=== PATIENT | female | born 1945 | race Caucasian/White ===

== ENCOUNTER → 2017-09-02 | Emergency (ER) | payer MEDICARE, SELFPAY ==
[~2017-09-02] VITALS: Ht 165.1 cm; Wt 52.2 kg
[~2017-09-02] MED LIST: ATORVASTATIN CA40 MG PO; CRUTCH1 EACH; DULCOLAX STOOL100 MG PO; ESOMEPRAZOLE MA20 MG PO; FLUOXETINE HCL20 MG PO; GABAPENTIN300 MG PO; HYDROCODON-ACE1 EA11 PO; LORAZEPAM1 MG PO; LORAZEPAM2 MG PO; METOPROLOL SUCC25 MG PO; NAPROSYN375 MG PO; NORCO 5-325 TA1 EACH PO; PERCOCET 5-3251 EACH PO; POLYETHYLENE GL17 GM PO; PRILOSEC OTC20 MG PO; RANITIDINE HCL150 MG PO; TRANSDERM-SCOP1 EA TD; VICODIN 5-5001 EACH PO; ZYRTEC10 MG PO
--- OUTSIDE RECORDS SUMMARY | ~2017-09-02 | XMS | Clinical Summary ---
Demographics + + + | Address | [address] | | | [place] [address] | + + + | Home Phone | | + + + | Preferred Language | Unknown | + + + | Marital Status | Single | + + + | Latter Day Affiliation | Unknown | + + + | Race | White | + + + | Ethnic Group | Not or | + + + Author + + + | Author | [facility] | + + + | Organization | [facility] | + + + | Address | Unknown | + + + | Phone | Unavailable | + + + Support +------+ +---------+ + | Name | Relationship | Address | Phone | +------+ +---------+ + ECON | Unknown | | +------+ +---------+ + Care Team Providers + +------+ + | Care Road Maker Name | Role | Phone | + +------+ + PP | Unavailable | + +------+ + Source Comments SUSAN is fully live on both [facility] and [facility] Allergies + + + + + + | Active Allergy | Reactions | Severity | Noted | Comments | | | | | Date | | + + + + + + | Vpaazved-Meszvtsez-K | Pruritus, Rash | Medium | 05/06/20 | allergy to the | | idocaine | | | 06 | combonation of | | | | | | anitbiotic and pain | | | | | | killers. Only when | | | | | | they are combinded | | | | | | together! | + + + + + + | Acetaminophen | Pruritus, Rash | Medium | 05/06/20 | Allergy when pain | | | | | 06 | killer in combinded | | | | | | with anitbiotics! | + + + + + + Current Medications + + +-------+---------+------+------+-------+ | Prescription | Sig. | Disp. | Refills | Star | End | Statu | | | | | | t | Date | s | | | | | | Date | | | + + +-------+---------+------+------+-------+ | LIPITOR 10 MG TAB | take 1 tablet (10mg) | | | | | Activ | | | by oral route once | | | | | e | | | daily | | | | | | + + +-------+---------+------+------+-------+ | FAMOTIDINE 20 MG | take 1 tablet (20mg) | | | | | Activ | | TAB | by oral route 2 | | | | | e | | | times per day | | | | | | + + +-------+---------+------+------+-------+ | CLARINEX OR | 5mg daily | | | | | Activ | | | | | | | | e | + + +-------+---------+------+------+-------+ | ACTANOL OR | 35mg once a week | | | | | Activ | | | | | | | | e | + + +-------+---------+------+------+-------+ | PERCOCET 5 MG-325 | take 1 tablet by | | | | | Activ | | MG TAB | oral route every 6 | | | | | e | | | hours as needed | | | | | | + + +-------+---------+------+------+-------+ | ATIVAN 1 MG TAB | take 1 tablet (1mg) | | | | | Activ | | | by oral route 3 | | | | | e | | | times per day as | | | | | | | | needed | | | | | | + + +-------+---------+------+------+-------+ Active Problems + + + | Problem | Noted Date | + + + | Breast cancer (HCC) | 05/09/2006 | + + + Social History + + + +--------+------+ | Tobacco Use | Types | Packs/Day | Years | Date | | | | | Used | | + + + +--------+------+ | Current Every Day | Cigarettes, Cigars | 1.5 | 40 | | | Smoker | | | | | + + + +--------+------+ + + + | Sex Assigned at | Date Recorded | | | | + + + | Not on file | | + + + Last Filed Vital Signs + + + + | Vital Sign | Reading | Time Taken | + + + + | Blood Pressure | 98/68 | 05/06/2006 3:01 PM PDT | + + + + | Pulse | - | - | + + + + | Temperature | - | - | + + + + | Respiratory Rate | 16 | 05/06/2006 3:01 PM PDT | + + + + | Oxygen Saturation | - | - | + + + + | Inhaled Oxygen | - | - | | Concentration | | | + + + + | Weight | 51.7 kg (114 lb) | 05/06/2006 3:01 PM PDT | + + + + | Height | 165.1 cm (5' 5") | 05/06/2006 3:01 PM PDT | + + + + | Body Mass Index | 18.97 | 05/06/2006 3:01 PM PDT | + + + + Plan of Treatment + + + + + | Health Maintenance | Due Date | Last Done | Comments | + + + + + | INFLUENZA VACCINE | | | | | (FLU SHOT) | 7 | | | + + + + + Results Not on filefrom Last 3 Months
--- OUTSIDE RECORDS SUMMARY | ~2017-09-02 | XMS | Clinical Summary ---
Demographics + + + | Address | [address] | | | [place] [address] | + + + | Home Phone | | + + + | Preferred Language | Unknown | + + + | Marital Status | Single | + + + | Amish Affiliation | Unknown | + + + [...] Team Providers + +------+ + | Care Encoding Machine Operator Name | Role | Phone | + +------+ + PP | Unavailable | + +------+ + Source Comments SUSAN is fully live on both [facility] and [facility] Allergies + + + + + + | Active Allergy | Reactions | Severity | Noted | Comments | | | | | Date | | + + + + + + | Wrlgrnjk-Dozvijmum-Z | Pruritus, Rash | Medium | 05/06/20 [...]
== END ==
LOC: ED 00:08
DX: K59.00 Constipation, unspecified (principal); F41.9 Anxiety disorder, unspecified; Z85.3 Personal history of malignant neoplasm of breast; Z87.442 Personal history of urinary calculi; Z87.891 Personal history of nicotine dependence; Z90.710 Acquired absence of both cervix and uterus; Z88.5 Allergy status to narcotic agent; Z88.8 Allergy status to other drugs, medicaments and biological substances
CPT/HCPCS: 74018; 99283

== ENCOUNTER 2018-04-13 12:38 | Emergency (ER) | payer MEDICARE ==
[~2018-04-13] VITALS: Ht 165.1 cm; Wt 52.2 kg
[2018-04-13] MEDS ORDERED: ATENOLOL25 MG PO (12:55)
== END 2018-04-13 13:19 | disposition home or self-care (01) ==
LOC: ED 12:38
DX: K62.3 Rectal prolapse (principal); Z87.891 Personal history of nicotine dependence; Z88.8 Allergy status to other drugs, medicaments and biological substances; Z79.899 Other long term (current) drug therapy
CPT/HCPCS: 99283

== ENCOUNTER 2018-04-22 16:50 | Emergency (ER) | payer MEDICARE ==
[~2018-04-22] VITALS: Ht 165.1 cm; Wt 53.5 kg
[~2018-04-22 16:50] MED LIST changes: +ATENOLOL25 MG PO
--- OUTSIDE RECORDS SUMMARY | 2018-04-22 16:54 | XMS ---
PreManage Notification: ASHLIE PINEDA Security Parts Control Clerk Events No recent Security Events currently on file CRITERIA MET - [facility] - 2 Visits in 30 Days CARE PROVIDERS Pao Cantu PA-C Treatment Current PHONE: Unknown Steven has no Care Guidelines for this patient. EVandana VISIT COUNT (12 MO.) 3 [facility] TOTAL 3 NOTE: Visits indicate total known visits. ED/UCC VISIT TRACKING (12 MO.) 04/22/2018 16:50 [facility] [place] TYPE: Emergency COMPLAINT: - L R FOOT NUMBNESS 04/13/2018 12:39 [facility] [place] TYPE: Emergency COMPLAINT: - RECTAL PROBLEM DIAGNOSES: - Allergy status to other drugs, medicaments and biological substances status - Rectal prolapse - Lower abdominal pain, unspecified - Other fpc (current) drug therapy - Personal history of nicotine dependence 09/02/2017 00:08 [facility] [place] TYPE: Emergency COMPLAINT: - BOWEL PROBLEMS DIAGNOSES: - Personal history of malignant neoplasm of breast - Low back pain - Personal history of nicotine dependence - Constipation, unspecified - Personal history of urinary calculi - Acquired absence of both cervix and uterus - Allergy status to other drugs, medicaments and biological substances status - Allergy status to narcotic agent status - Anxiety disorder, unspecified INPATIENT VISIT TRACKING (12 MO.) No inpatient visits to display in this time frame [id number]
[2018-04-22] MEDS ORDERED: ASPIR 8181 MG PO (17:15)
[2018-04-22] MEDS ORDERED: NORCO 5-325 TA1 EACH PO (19:25)
[2018-04-22] MEDS ORDERED: ATIVAN2 MG PO (19:25)
== END 2018-04-22 19:40 | disposition home or self-care (01) ==
LOC: ED 16:50
DX: F41.9 Anxiety disorder, unspecified (principal); F19.939 Other psychoactive substance use, unspecified with withdrawal, unspecified; Z79.899 Other long term (current) drug therapy
CPT/HCPCS: 96374; 99283; J2060

== ENCOUNTER 2018-11-15 06:50 | Day surgery (SDC) | payer MEDICARE ==
[~2018-11-15] VITALS: Ht 165.1 cm; Wt 53.5 kg
[~2018-11-15 06:50] MED LIST changes: +ASPIR 8181 MG PO; +ATIVAN2 MG PO; +DULCOLAX STOOL100 M1 PO; +NITROGLYCERIN0.4 MG SL; +ONDANSETRON ODT4 MG PO
--- NOTE | 2018-11-15 08:50 | NUR ---
11/15/18 0850 Cassie Gomez 0849 PT TO PACU SLEEPING DOES NOT RESPOND TO STIM. O2 ON VIA MASK AT 6L.
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
== END 2018-11-15 09:34 | disposition home or self-care (01) ==
LOC: OPS 06:50 → DS 06:50 → OPS 08:00 → DS 09:00 → OPS 09:00
PROVIDERS: Colon & Rectal Surgery
PROC: 0DBP8ZX Excision of Rectum, Via Natural or Artificial Opening Endoscopic, Diagnostic (ICD-10-PCS; 2018-11-15)
PROC: 0DBE8ZX Excision of Large Intestine, Via Natural or Artificial Opening Endoscopic, Diagnostic (ICD-10-PCS; principal; 2018-11-15 08:00)
DX: D12.6 Benign neoplasm of colon, unspecified (principal); K62.1 Rectal polyp; K63.5 Polyp of colon; K64.8 Other hemorrhoids; K64.4 Residual hemorrhoidal skin tags; Q43.8 Other specified congenital malformations of intestine; E78.5 Hyperlipidemia, unspecified; K21.9 Gastro-esophageal reflux disease without esophagitis; M81.0 Age-related osteoporosis without current pathological fracture; Z98.890 Other specified postprocedural states; Z88.5 Allergy status to narcotic agent; Z79.82 Long term (current) use of aspirin; Z79.899 Other long term (current) drug therapy; Z87.891 Personal history of nicotine dependence
CPT/HCPCS: J2250; J2704; J3010; J7120

== ENCOUNTER 2019-04-04 19:40 | Emergency (ER) | payer MEDICARE ==
[~2019-04-04] VITALS: Ht 165.1 cm; Wt 53.5 kg
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
== END 2019-04-04 20:13 | disposition home or self-care (01) ==
LOC: ED 19:40
DX: S61.432A Puncture wound without foreign body of left hand, initial encounter (principal); W22.8XXA Striking against or struck by other objects, initial encounter; Z85.3 Personal history of malignant neoplasm of breast; F41.9 Anxiety disorder, unspecified; Z87.891 Personal history of nicotine dependence; Z79.899 Other long term (current) drug therapy; Z79.82 Long term (current) use of aspirin
CPT/HCPCS: 90471; 90715; 99283-25

== ENCOUNTER 2020-03-20 11:39 | Emergency (ER) | payer MEDICARE ==
[~2020-03-20] VITALS: Ht 165.1 cm; Wt 53.5 kg
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
[2020-03-20] MEDS ORDERED: ELIQUIS5 MG PO (11:56)
[2020-03-20] MEDS ORDERED: LASIX20 MG PO (14:16)
[2020-03-20] MEDS ORDERED: PREDNISONE20 MG PO (14:16)
[2020-03-20] MEDS ORDERED: K-TAB ER8 MEQ PO (14:16)
--- NOTE | 2020-03-20 15:42 | EKG ---
[facility] [address] [address] Signed Atrial fibrillation with premature ventricular or aberrantly conducted complexes Low voltage QRS Cannot rule out Anterior infarct (cited on or before 08-NOV-2018) Abnormal ECG When compared with ECG of 08-NOV-2018 13:47, Atrial fibrillation has replaced Sinus rhythm QRS axis shifted right Questionable change in initial forces of Septal leads Nonspecific T wave abnormality now evident in Inferior leads Confirmed by DERIK BURCH MD ([id number]) on 03/20/2020 3:42:17 PM Electronically Signed By: DERIK BURCH MD 03/20/20 1542 PATIENT NAME: ASHLIE PINEDA Electrocardiogram DATE OF : 45 PHYSICIAN: DERIK BURCH MD REPORT #: [id number] REPORT IS CONFIDENTIAL AND NOT TO BE RELEASED WITHOUT AUTHORIZATION
--- NOTE | 2020-03-21 02:51 | PATH ---
[facility] [address] [facility] [place], [place] [address] Signed ORDERING PHYSICIAN: Segundo Luna MD PATIENT NAME: ASHLIE PINEDA GENDER: F : 1945 SPECIMEN(S): MOLECULAR PATHOLOGY RESULTS: SARS-CoV-2 Not Detected ADDITIONAL NOTES.: The [place] Fusion SARS-CoV-2 Assay is a multiplex real-time PCR (RT-PCR) in vitro diagnostic test intended for the qualitative detection of RNA from SARS-CoV-2 from individuals who meet COVID-19 clinical and/or epidemiological criteria. In general, SARS-CoV-2 RNA can be detected during the acute phase of infection. Positive results indicate the presence of SARS-CoV-2 RNA. Clinical correlation with patient history and other diagnostic information is necessary to determine patient infection status. Positive results do not rule out bacterial infection or co-infection with other viruses. Negative results do not preclude SARS-CoV-2 infection and should not be used as the sole basis for patient management decisions. Negative results must be combined with other clinical observations, patient history, and epidemiological information. The [place] Fusion SARS-CoV-2 Assay is not yet approved or cleared by the [place] FDA. When there are no FDA-approved or cleared tests available, and other criteria are met, FDA can make tests available under an emergency access mechanism called an Emergency Use Authorization (EUA). The EUA for this test is supported by the [place] of Health and Human Service's (HHS's) declaration that circumstances exist to justify the emergency use of in vitro diagnostics for the detection and/or diagnosis of the virus that causes COVID-19. This EUA will remain in effect for the duration of the COVID-19 declaration justifying emergency of IVDs, unless it is terminated or revoked by FDA, after which the test may no longer be used. The [place] Fusion SARS-CoV-2 Assay is for use only under EUA in US laboratories certified under the Clinical Laboratory Improvement Amendments of 1988 (CLIA) to perform high complexity tests. [facility] is certified under CLIA to perform high complexity PATIENT NAME: ASHLIE PINEDA ANN PATHOLOGY DATE OF : 45 REPORT #: [id number] PHYSICIAN: OLIVIER ROSEN PCP: EDD JHAVERI PA-C REPORT IS CONFIDENTIAL AND NOT TO BE RELEASED WITHOUT AUTHORIZATION [address] [address] Signed clinical laboratory testing. PERFORMING LABORATORY.: Molecular testing was performed by [facility] [address] [place], [place] [address] [address] (Hair Boiler: Wilbur Lopez D.O.; CLIA#: [id number]) Diagnostician: System Interface Pathologist Electronically Signed 03/21/2020 Copies: ~ PATIENT NAME: ASHLIE PINEDA ANN PATHOLOGY DATE OF : 45 REPORT #: [id number] PHYSICIAN: OLIVIER ROSEN PCP: EDD JHAVERI PA-C REPORT IS CONFIDENTIAL AND NOT TO BE RELEASED WITHOUT AUTHORIZATION
== END 2020-03-20 14:49 | disposition home or self-care (01) ==
LOC: ED 11:39
DX: J44.9 Chronic obstructive pulmonary disease, unspecified (principal); I48.91 Unspecified atrial fibrillation; I50.9 Heart failure, unspecified; F41.9 Anxiety disorder, unspecified; Z87.891 Personal history of nicotine dependence; Z79.899 Other long term (current) drug therapy; Z79.82 Long term (current) use of aspirin; Z79.01 Long term (current) use of anticoagulants
CPT/HCPCS: 71045; 80053; 83880; 84484; 85025; 93005; 93010; 96374; 99285-25; C9803; J1940

== ENCOUNTER 2020-03-30 08:14 | Emergency (ER) | payer MEDICARE ==
[~2020-03-30] VITALS: Ht 165.1 cm; Wt 53.5 kg
[~2020-03-30 08:14] MED LIST changes: +ELIQUIS5 MG PO; +K-TAB ER8 MEQ PO; +LASIX20 MG PO; +PREDNISONE20 MG PO
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
--- NOTE | 2020-03-31 14:12 | NUR ---
ED heart failure follow up. LM for patient to call this service is she has further questions.
--- NOTE | 2020-04-01 10:56 | EKG ---
[facility] [address] [facility] [place] [address] Signed Poor data quality, interpretation may be adversely affected Atrial fibrillation Right superior axis deviation Possible Right ventricular hypertrophy Cannot rule out Anterior infarct (cited on or before 08-NOV-2018) Abnormal ECG When compared with ECG of 20-MAR-2020 11:49, Questionable change in QRS axis Confirmed by DERIK BURCH MD ([id number]) on 04/01/2020 10:56:06 AM Electronically Signed By: DERIK BURCH MD 04/01/20 1056 PATIENT NAME: ASHLIE PINEDA Electrocardiogram DATE OF : 45 PHYSICIAN: DERIK BURCH MD REPORT #: [id number] REPORT IS CONFIDENTIAL AND NOT TO BE RELEASED WITHOUT AUTHORIZATION
== END 2020-03-30 11:35 | disposition home or self-care (01) ==
LOC: ED 08:14
DX: E86.0 Dehydration (principal); F41.9 Anxiety disorder, unspecified; Z87.891 Personal history of nicotine dependence; Z79.899 Other long term (current) drug therapy
CPT/HCPCS: 71045; 80053; 81001; 83735; 83880; 84484; 85025; 93005; 93010; 99285-25; J7040

== ENCOUNTER 2020-04-07 19:29 | Emergency (ER) | payer MEDICARE ==
[~2020-04-07] VITALS: Ht 165.1 cm; Wt 53.5 kg
--- OUTSIDE RECORDS SUMMARY | 2020-04-07 19:32 | XMS ---
PreManage Notification: ASHLIE PINEDA Security Gore Maker Events No recent Security Events currently on file CRITERIA MET - [facility] - 2 Visits in 30 Days CARE PROVIDERS EDD JHAVERI Physician Finance Lecturer 04/05/2019-Current PHONE: [phone] Steven has no Care Guidelines for this patient. Sanjuana VISIT COUNT (12 MO.) 3 [facility] TOTAL 3 NOTE: Visits indicate total known visits. ED/UCC VISIT TRACKING (12 MO.) 04/07/2020 19:29 [facility] [place] TYPE: Emergency COMPLAINT: - ALTERED LOC 03/30/2020 08:15 [facility] [place] TYPE: Emergency COMPLAINT: - CHEST PAIN DIAGNOSES: - Anxiety disorder, unspecified - Dehydration - Personal history of nicotine dependence - Other fdc (current) drug therapy - Weakness 03/20/2020 11:40 [facility] [place] TYPE: Emergency COMPLAINT: - DIFFICULTY BREATHING DIAGNOSES: - Anxiety disorder, unspecified - [facility] (current) use of aspirin - Other fdc (current) drug therapy - Personal history of nicotine dependence - [facility] (current) use of anticoagulants - Unspecified atrial fibrillation - Heart failure, unspecified - Dyspnea, unspecified - Chronic obstructive pulmonary disease, unspecified INPATIENT VISIT TRACKING (12 MO.) No inpatient visits to display in this time frame [id number]
[2020-04-07] MEDS ORDERED: ELIQUIS5 MG PO (20:11)
[2020-04-07] MEDS ORDERED: OMEPRAZOLE20 MG PO (20:12)
[2020-04-07] MEDS ORDERED: BISOPROLOL FUMAR5 MG PO (20:13)
--- NOTE | 2020-04-08 17:17 | EKG ---
[facility] [address] [facility] [place], [place] [address] Signed Atrial fibrillation Indeterminate axis Low voltage QRS Cannot rule out Anterior infarct (cited on or before 08-NOV-2018) Abnormal ECG When compared with ECG of 30-MAR-2020 08:23, Questionable change in QRS axis Nonspecific T wave abnormality, worse in Anterior leads Confirmed by LUISA CARRINGTON DO ([id number]) on 04/08/2020 5:17:19 PM Electronically Signed By: LUISA CARRINGTON DO 04/08/20 1717 PATIENT NAME: ASHLIE PINEDA ANN Electrocardiogram DATE OF : 45 PHYSICIAN: LUISA CARRINGTON DO REPORT #: [id number] REPORT IS CONFIDENTIAL AND NOT TO BE RELEASED WITHOUT AUTHORIZATION
== END 2020-04-07 22:58 | disposition home or self-care (01) ==
LOC: ED 19:29
DX: S80.01XA Contusion of right knee, initial encounter (principal); R53.1 Weakness; R41.0 Disorientation, unspecified; M54.2 Cervicalgia; F41.9 Anxiety disorder, unspecified; I48.91 Unspecified atrial fibrillation; Z87.891 Personal history of nicotine dependence; Z88.5 Allergy status to narcotic agent; Z79.899 Other long term (current) drug therapy; W18.30XA Fall on same level, unspecified, initial encounter
CPT/HCPCS: 70450; 71045; 72125; 73560; 80053; 81001; 83735; 84484; 85025; 85610; 85730; 93005; 93010; 99285-25; G0480

== ENCOUNTER 2020-09-05 04:06 | Emergency (ER) | payer MEDICARE ==
[~2020-09-05] VITALS: Ht 165.1 cm; Wt 51.3 kg
[~2020-09-05 04:06] MED LIST changes: +BISOPROLOL FUMAR5 MG PO; +OMEPRAZOLE20 MG PO
--- OUTSIDE RECORDS SUMMARY | 2020-09-05 04:08 | XMS ---
PreManage Notification: ASHLIE PINEDA Security Helper Electrical Events No recent Security Events currently on file CRITERIA MET - PDMP CARE PROVIDERS EDD JHAVERI Physician Rental Car Deliverer 04/05/2019-Current PHONE: [phone] Steven has no Care Guidelines for this patient. E.Marii VISIT COUNT (12 MO.) 4 [facility] TOTAL 4 NOTE: Visits indicate total known visits. ED/UCC VISIT TRACKING (12 MO.) 09/05/2020 04:06 [facility] [place] TYPE: Emergency COMPLAINT: - ABDOMINAL PAIN 04/07/2020 19:29 [facility] [place] TYPE: Emergency COMPLAINT: - ALTERED LOC DIAGNOSES: - Cervicalgia - Fall on same level, unspecified, initial encounter - Other fci (current) drug therapy - Unspecified atrial fibrillation - Disorientation, unspecified - Anxiety disorder, unspecified - Weakness - Personal history of nicotine dependence - Contusion of right knee, initial encounter - Allergy status to narcotic agent - Weakness 03/30/2020 08:15 [facility] [place] TYPE: Emergency COMPLAINT: - CHEST PAIN DIAGNOSES: - Anxiety disorder, unspecified - Dehydration - Personal history of nicotine dependence - Other fci (current) drug therapy - Weakness 03/20/2020 11:[address] [facility] [place] TYPE: Emergency COMPLAINT: - DIFFICULTY BREATHING DIAGNOSES: - Anxiety disorder, unspecified - penitentiary (current) use of aspirin - Other ferry terminal supervisor (current) drug therapy - Personal history of nicotine dependence - ferry terminal supervisor (current) use of anticoagulants - Unspecified atrial fibrillation - Heart failure, unspecified - Contact with and (suspected) exposure to other viral communicable diseases - Dyspnea, unspecified - Chronic obstructive pulmonary disease, unspecified INPATIENT VISIT TRACKING (12 MO.) No inpatient visits to display in this time frame [id number]
== END 2020-09-05 07:23 | disposition home or self-care (01) ==
LOC: ED 04:06
DX: R10.13 Epigastric pain (principal); R19.7 Diarrhea, unspecified; Z85.3 Personal history of malignant neoplasm of breast; I48.91 Unspecified atrial fibrillation; J44.9 Chronic obstructive pulmonary disease, unspecified; Z87.891 Personal history of nicotine dependence; Z88.5 Allergy status to narcotic agent; Z79.899 Other long term (current) drug therapy
CPT/HCPCS: 74177; 80053; 81001; 83690; 83880; 85025; 96374; 99284-25; J2405; J7040; Q9967

== ENCOUNTER 2021-02-02 02:32 | Emergency (ER) | payer MEDICARE ==
[~2021-02-02] VITALS: Ht 165.1 cm; Wt 51.3 kg
[~2021-02-02 02:32] MED LIST changes: +ADULT ASPIRIN R81 MG PO; -ASPIR 8181 MG PO
[2021-02-02] MEDS ORDERED: POTASSIUM CHLO10 MEQ PO (03:57)
[2021-02-02] MEDS ORDERED: LASIX20 MG PO (03:57)
--- NOTE | 2021-02-02 12:22 | EKG ---
[facility] [address] [facility] [place], [place] [address] Signed Atrial fibrillation Low voltage QRS Nonspecific T wave abnormality Abnormal ECG When compared with ECG of 07-APR-2020 19:44, QRS axis shifted right Nonspecific T wave abnormality has replaced inverted T waves in Inferior leads Confirmed by LUISA CARRINGTON DO ([id number]) on 02/02/2021 12:21:57 PM Electronically Signed By: LUISA CARRINGTON DO 02/02/21 1222 PATIENT NAME: ASHLIE PINEDA ANN Electrocardiogram DATE OF : 45 PHYSICIAN: LUISA CARRINGTON DO REPORT #: [id number] REPORT IS CONFIDENTIAL AND NOT TO BE RELEASED WITHOUT AUTHORIZATION
== END 2021-02-02 04:15 | disposition home or self-care (01) ==
LOC: ED 02:32
DX: I50.9 Heart failure, unspecified (principal); Z85.3 Personal history of malignant neoplasm of breast; I48.91 Unspecified atrial fibrillation; J44.9 Chronic obstructive pulmonary disease, unspecified; Z87.891 Personal history of nicotine dependence; Z79.899 Other long term (current) drug therapy; Z79.82 Long term (current) use of aspirin
CPT/HCPCS: 71045; 80053; 84484; 85025; 93005; 93010; 99284-25

== ENCOUNTER 2021-03-07 10:12 | Observation (INO) | payer MEDICARE ==
[~2021-03-07] VITALS: Ht 165.1 cm; Wt 51.8 kg
[~2021-03-07 10:12] MED LIST changes: +POTASSIUM CHLO10 MEQ PO
--- OUTSIDE RECORDS SUMMARY | 2021-03-07 10:14 | XMS ---
PreManage Notification: ASHLIE PINEDA Security Assistant County Attorney Events No recent Security Events currently on file CRITERIA MET - [facility] CARE PROVIDERS EDD JHAVERI Physician Stripper [place] 04/05/2019-Current PHONE: [phone] Steven has no Care Guidelines for this patient. E.Marii VISIT COUNT (12 MO.) 6 [facility] TOTAL 6 NOTE: Visits indicate total known visits. ED/UCC VISIT TRACKING (12 MO.) 03/07/2021 10:12 [facility] [place] TYPE: Emergency COMPLAINT: - WEAKNESS 02/02/2021 02:32 [facility] [place] TYPE: Emergency COMPLAINT: - ANXIETY DIAGNOSES: - teaching fellow (current) use of aspirin - Unspecified atrial fibrillation - Other fci (current) drug therapy - Personal history of malignant neoplasm of breast - Heart failure, unspecified - Personal history of nicotine dependence - Anxiety disorder, unspecified - Chronic obstructive pulmonary disease, unspecified 09/05/2020 04:06 [facility] [place] TYPE: Emergency COMPLAINT: - ABDOMINAL PAIN DIAGNOSES: - Other hvac refrigeration technician (current) drug therapy - Personal history of nicotine dependence - Unspecified atrial fibrillation - Epigastric pain - Allergy status to narcotic agent - Personal history of malignant neoplasm of breast - Chronic obstructive pulmonary disease, unspecified - Diarrhea, unspecified 04/07/2020 19:29 [facility] [place] TYPE: Emergency COMPLAINT: - ALTERED LOC DIAGNOSES: - Cervicalgia - Fall on same level, unspecified, initial encounter - Other hvac refrigeration technician (current) drug therapy - Unspecified atrial fibrillation [...] BREATHING DIAGNOSES: - Anxiety disorder, unspecified - teaching fellow (current) use of aspirin - Other hvac refrigeration technician (current) drug therapy - Personal history of nicotine dependence - teaching fellow (current) use of anticoagulants - Unspecified atrial fibrillation - Heart failure, unspecified - Contact with and (suspected) exposure to other viral communicable diseases - Dyspnea, unspecified - Chronic obstructive pulmonary disease, unspecified INPATIENT VISIT TRACKING (12 MO.) No inpatient visits to display in this time frame [id number]
[2021-03-07] MEDS ORDERED: HYDROCODON-ACE1 EA10 PO (16:39)
--- NOTE | 2021-03-07 19:21 | EKG ---
[facility] [address] [facility] [place], [place] [address] Signed Atrial fibrillation Low voltage QRS Septal infarct , age undetermined Abnormal ECG When compared with ECG of 02-FEB-2021 02:50, Septal infarct is now present Confirmed by KIRA SYLVESTER MD ([id number]) on 03/07/2021 7:20:38 PM Electronically Signed By: KIRA SYLVESTER MD 03/07/211920 PATIENT NAME: ASHLIE PINEDA ANN Electrocardiogram DATE OF : 45 PHYSICIAN: KIRA SYLVESTER MD REPORT #: [id number] REPORT IS CONFIDENTIAL AND NOT TO BE RELEASED WITHOUT AUTHORIZATION
[2021-03-09] MEDS ORDERED: BISOPROLOL FUMAR5 MG PO (12:43)
[2021-03-09] MEDS ORDERED: LORAZEPAM1 MG PO (12:44)
[2021-03-09] MEDS ORDERED: ROPINIROLE HC0.25 MG PO (12:44)
[2021-03-09] MEDS ORDERED: GABAPENTIN100 MG PO (12:44)
[2021-03-09] MEDS ORDERED: FLUOXETINE HCL20 MG PO (12:44)
[2021-03-09] MEDS ORDERED: ALLEGRA ALLERG180 MG PO (12:56)
[2021-03-09] MEDS ORDERED: AZO CRANBERRY1 EAC1 PO (12:56)
[2021-03-09] MEDS ORDERED: BLUE TUBE30 GM TOP (12:57)
== END 2021-03-09 15:25 | disposition home or self-care (01) ==
LOC: ED 10:12 → MS 10:13
PROVIDERS: ADMIT Internal Medicine; ATTEND Internal Medicine
DX: R53.1 Weakness (principal); R41.82 Altered mental status, unspecified; N39.0 Urinary tract infection, site not specified; S80.01XA Contusion of right knee, initial encounter; M79.606 Pain in leg, unspecified; G89.4 Chronic pain syndrome; G25.81 Restless legs syndrome; M19.90 Unspecified osteoarthritis, unspecified site; I48.20 Chronic atrial fibrillation, unspecified; G47.00 Insomnia, unspecified; J44.9 Chronic obstructive pulmonary disease, unspecified; F11.10 Opioid abuse, uncomplicated; W18.30XA Fall on same level, unspecified, initial encounter; Z23 Encounter for immunization; Z20.822 Contact with and (suspected) exposure to COVID-19; Z85.3 Personal history of malignant neoplasm of breast; Z79.01 Long term (current) use of anticoagulants; Z88.5 Allergy status to narcotic agent; Z79.899 Other long term (current) drug therapy; Z79.82 Long term (current) use of aspirin; Z87.891 Personal history of nicotine dependence
CPT/HCPCS: 70450; 71045; 73502; 73560; 80048; 80053; 81001; 82803; 83605; 83735; 84484; 85025; 90471; 90715; 93005; 93010; 96374; 97110; 97116; 97162; 99285-25; A9270-GY; C9803; G0378; G0480; J0696; J2310; J7121; U0003

== ENCOUNTER 2021-03-12 16:10 | Emergency (ER) | payer MEDICARE ==
[~2021-03-12] VITALS: Ht 165.1 cm; Wt 51.3 kg
[~2021-03-12 16:10] MED LIST changes: +ALLEGRA ALLERG180 MG PO; +AZO CRANBERRY1 EAC1 PO; +BLUE TUBE30 GM TOP; +GABAPENTIN100 MG PO; +HYDROCODON-ACE1 EA10 PO; +ROPINIROLE HC0.25 MG PO
--- OUTSIDE RECORDS SUMMARY | 2021-03-12 16:12 | XMS ---
PreManage Notification: ASHLIE PINEDA Security Senior Office Support Assistant Sosa Events No recent Security Events currently on file CRITERIA MET - [facility] - 2 Visits in 30 Days CARE PROVIDERS EDD JHAVERI Physician Airport Refueling Handler 04/05/2019-Current PHONE: [phone] Steven has no Care Guidelines for this patient. Sanjuana VISIT COUNT (12 MO.) [address] [place] [address] TOTAL 7 NOTE: Visits indicate total known visits. ED/C VISIT TRACKING (12 MO.) 03/12/2021 16:10 [facility] [place] TYPE: Emergency COMPLAINT: - POSSIBLE BLOOD CLOT 03/07/2021 10:12 [facility] [place] TYPE: Emergency COMPLAINT: - WEAKNESS 02/02/2021 02:32 [facility] [place] TYPE: Emergency COMPLAINT: - ANXIETY DIAGNOSES: - tank terminal gauger (current) use of aspirin - Unspecified atrial fibrillation - Other tank terminal gauger (current) drug therapy - Personal history of malignant neoplasm of breast - Heart failure, unspecified - Personal history of nicotine dependence - Anxiety disorder, unspecified - Chronic obstructive pulmonary disease, unspecified 09/05/2020 04:06 [facility] [place] TYPE: Emergency COMPLAINT: - ABDOMINAL PAIN DIAGNOSES: - Other tank terminal gauger (current) drug therapy - Personal history of nicotine dependence - Unspecified atrial fibrillation - Epigastric pain - Allergy status to narcotic agent - Personal history of malignant neoplasm of breast - Chronic obstructive pulmonary disease, unspecified - Diarrhea, unspecified 04/07/2020 19:29 [facility] [place] TYPE: Emergency COMPLAINT: - ALTERED LOC DIAGNOSES: - Cervicalgia - Fall on same level, unspecified, initial encounter - Other tank terminal gauger (current) drug therapy - Unspecified atrial fibrillation - Disorientation, unspecified - Anxiety disorder, unspecified - Weakness - Personal history of nicotine dependence - Contusion of right knee, initial encounter - Allergy status to narcotic agent - Weakness 03/30/2020 08:15 [facility] [place] TYPE: Emergency COMPLAINT: - CHEST PAIN DIAGNOSES: - Anxiety disorder, unspecified - Dehydration - Personal history of nicotine dependence - Other senior care (current) drug therapy - Weakness 03/20/2020 11:40 [facility] [place] TYPE: Emergency COMPLAINT: - DIFFICULTY BREATHING DIAGNOSES: - Anxiety disorder, unspecified - nursing home (current) use of aspirin - Other tank terminal gauger (current) drug therapy - Personal history of nicotine dependence - tank terminal gauger (current) use of anticoagulants - Unspecified atrial fibrillation - Heart failure, unspecified - Contact with and (suspected) exposure to other viral communicable diseases - Dyspnea, unspecified - Chronic obstructive pulmonary disease, unspecified INPATIENT VISIT TRACKING (12 MO.) 03/07/2021 10:13 [facility] [place] TYPE: Observation COMPLAINT: - FALLS DIAGNOSES: - Personal history of malignant neoplasm of breast - Other tank terminal gauger (current) drug therapy - Altered mental status, unspecified - Encounter for immunization - Unspecified osteoarthritis, unspecified site - Chronic pain syndrome - Contusion of right knee, initial encounter - Personal history of nicotine dependence - Chronic atrial fibrillation, unspecified - Chronic obstructive pulmonary disease, unspecified - Urinary tract infection, site not specified - Restless legs syndrome - nursing home (current) use of aspirin - Weakness - Allergy status to narcotic agent - nursing home (current) use of anticoagulants - Insomnia, unspecified - Pain in leg, unspecified - Fall on same level, unspecified, initial encounter - Opioid abuse, uncomplicated [email or web address]
== END 2021-03-12 20:00 | disposition home or self-care (01) ==
LOC: ED 16:10
DX: S80.01XA Contusion of right knee, initial encounter (principal); S70.11XA Contusion of right thigh, initial encounter; W18.30XA Fall on same level, unspecified, initial encounter; Z85.3 Personal history of malignant neoplasm of breast; I48.91 Unspecified atrial fibrillation; J44.9 Chronic obstructive pulmonary disease, unspecified; Z87.891 Personal history of nicotine dependence; Z88.5 Allergy status to narcotic agent; Z79.899 Other long term (current) drug therapy; Z79.82 Long term (current) use of aspirin
CPT/HCPCS: 73552; 85025; 99284-25

== ENCOUNTER 2021-04-09 22:43 | Emergency (ER) | payer MEDICARE ==
[~2021-04-09] VITALS: Ht 165.1 cm; Wt 51.3 kg
--- OUTSIDE RECORDS SUMMARY | 2021-04-09 22:46 | XMS ---
PreManage Notification: ASHLIE PINEDA Security Lumber Kiln Operator Events No recent Security Events currently on file CRITERIA MET - [facility] - 2 Visits in 30 Days CARE PROVIDERS EDD JHAVERI Physician Wheel Adjuster 04/05/2019-Current PHONE: [phone] Steven has no Care Guidelines for this patient. Sanjuana VISIT COUNT (12 MO.) 5 [facility] TOTAL 5 NOTE: Visits indicate total known visits. ED/C VISIT TRACKING (12 MO.) 04/09/2021 22:43 [facility] [place] TYPE: Emergency COMPLAINT: - DIFFICULTY BREATHING 03/12/2021 16:10 [facility] [place] TYPE: Emergency COMPLAINT: - POSSIBLE BLOOD CLOT DIAGNOSES: - Unspecified atrial fibrillation - Fall on same level, unspecified, initial encounter - Other snf (current) drug therapy - Personal history of malignant neoplasm of breast - Personal history of nicotine dependence - Contusion of right knee, initial encounter - Contusion of right thigh, initial encounter - long term acute care registered nurse (current) use of aspirin - Chronic obstructive pulmonary disease, unspecified - Allergy status to narcotic agent 03/07/2021 10:12 [facility] [place] TYPE: Emergency COMPLAINT: - WEAKNESS 02/02/2021 02:32 [facility] [place] TYPE: Emergency COMPLAINT: - ANXIETY DIAGNOSES: - long term acute care registered nurse (current) use of aspirin - Unspecified atrial fibrillation - Other terminal worker (current) drug therapy - Personal history of malignant neoplasm of breast - Heart failure, unspecified - Personal history of nicotine dependence - Anxiety disorder, unspecified - Chronic obstructive pulmonary disease, unspecified 09/05/2020 04:06 [facility] [place] TYPE: Emergency COMPLAINT: - ABDOMINAL PAIN DIAGNOSES: - Other terminal worker (current) drug therapy - Personal history of nicotine dependence - Unspecified atrial fibrillation - Epigastric pain - Allergy status to narcotic agent - Personal history of malignant neoplasm of breast - Chronic obstructive pulmonary disease, unspecified - Diarrhea, unspecified INPATIENT VISIT TRACKING (12 MO.) 03/07/2021 10:[address] [facility] [place] TYPE: Observation COMPLAINT: - FALLS DIAGNOSES: - Personal history of malignant neoplasm of breast - Other terminal worker (current) drug therapy - Altered mental status, unspecified - Encounter for immunization - Unspecified osteoarthritis, unspecified site - Chronic pain syndrome - Contusion of right knee, initial encounter - Personal history of nicotine dependence - Chronic atrial fibrillation, unspecified - Chronic obstructive pulmonary disease, unspecified - Urinary tract infection, site not specified - Restless legs syndrome - [facility] (current) use of aspirin - Weakness - Allergy status to narcotic agent - [facility] (current) use of anticoagulants - Insomnia, unspecified - Pain in leg, unspecified - Fall on same level, unspecified, initial encounter - Opioid abuse, uncomplicated [id number]
[2021-04-09] MEDS ORDERED: FUROSEMIDE20 MG PO (22:58)
[2021-04-09] MEDS ORDERED: POTASSIUM CHLO10 MEQ PO (22:59)
[2021-04-10] MEDS ORDERED: LIDODERM1 EACH TOP (02:52)
--- NOTE | 2021-04-11 19:02 | EKG ---
[facility] [address] [facility] [place] [address] Signed Atrial fibrillation with rapid ventricular response Low voltage QRS Septal infarct (cited on or before 07-MAR-2021) Abnormal ECG When compared with ECG of 07-MAR-2021 11:02, Junctional rhythm has replaced Atrial fibrillation Questionable change in initial forces of Septal leads Confirmed by DERIK BURCH MD ([id number]) on 04/11/2021 7:02:07 PM Electronically Signed By: DERIK BURCH MD 04/11/211901 PATIENT NAME: ASHLIE PINEDA ANN Electrocardiogram DATE OF : 45 PHYSICIAN: DERIK BURCH MD REPORT #: [id number] REPORT IS CONFIDENTIAL AND NOT TO BE RELEASED WITHOUT AUTHORIZATION
== END 2021-04-10 03:08 | disposition home or self-care (01) ==
LOC: ED 22:43
DX: R06.02 Shortness of breath (principal); R07.9 Chest pain, unspecified; M54.9 Dorsalgia, unspecified; Z20.822 Contact with and (suspected) exposure to COVID-19; Z85.3 Personal history of malignant neoplasm of breast; I48.91 Unspecified atrial fibrillation; J44.9 Chronic obstructive pulmonary disease, unspecified; Z88.5 Allergy status to narcotic agent; Z79.899 Other long term (current) drug therapy
CPT/HCPCS: 71045; 80053; 83735; 84484; 85025; 85379; 93005; 93010; 96374; 99285-25; A9270; C9803; U0003

== ENCOUNTER 2021-04-24 18:43 | Emergency (ER) | payer MEDICARE ==
[~2021-04-24] VITALS: Ht 165.1 cm; Wt 51.3 kg
[~2021-04-24 18:43] MED LIST changes: +FUROSEMIDE20 MG PO; +LIDODERM1 EACH TOP
--- OUTSIDE RECORDS SUMMARY | 2021-04-24 18:46 | XMS ---
PreManage Notification: ASHLIE PINEDA Security Soap Inspector Events No recent Security Events currently on file CRITERIA MET - [facility] - 2 Visits in 30 Days CARE PROVIDERS EDD JHAVERI Physician Director Supply 04/10/2021-Current PHONE: [phone] Steven has no Care Guidelines for this patient. Sanjuana VISIT COUNT (12 MO.) 6 [facility] TOTAL 6 NOTE: Visits indicate total known visits. ED/C VISIT TRACKING (12 MO.) 04/24/2021 18:43 [facility] [place] TYPE: Emergency COMPLAINT: - WEAKNESS 04/09/2021 22:43 [facility] [place] TYPE: Emergency COMPLAINT: - DIFFICULTY BREATHING DIAGNOSES: - Allergy status to narcotic agent - Chest pain, unspecified - Unspecified atrial fibrillation - Shortness of breath - Personal history of malignant neoplasm of breast - Other senior designer/art director (current) drug therapy - Dorsalgia, unspecified - Chronic obstructive pulmonary disease, unspecified 03/12/2021 16:10 [facility] [place] TYPE: Emergency COMPLAINT: - POSSIBLE BLOOD CLOT DIAGNOSES: - Unspecified atrial fibrillation - Fall on same level, unspecified, initial encounter - Other chcf (current) drug therapy - Personal history of malignant neoplasm of breast - Personal history of nicotine dependence - Contusion of right knee, initial encounter - Contusion of right thigh, initial encounter - security test engineer (current) use of aspirin - Chronic obstructive pulmonary disease, unspecified - Allergy status to narcotic agent 03/07/2021 10:12 [facility] [place] TYPE: Emergency COMPLAINT: - WEAKNESS 02/02/2021 02:32 [facility] [place] TYPE: Emergency COMPLAINT: - ANXIETY DIAGNOSES: - alf (current) use of aspirin - Unspecified atrial fibrillation - Other senior designer/art director (current) drug therapy - Personal history of malignant neoplasm of breast - Heart failure, unspecified - Personal history of nicotine dependence - Anxiety disorder, unspecified - Chronic obstructive pulmonary disease, unspecified 09/05/2020 04:06 [facility] [place] TYPE: Emergency COMPLAINT: - ABDOMINAL PAIN DIAGNOSES: - Other chcf (current) drug therapy - Personal history of [...] of malignant neoplasm of breast - Other chcf (current) drug therapy - Altered mental status, unspecified - Encounter for immunization - Unspecified osteoarthritis, unspecified site - Chronic pain syndrome - Contusion of right knee, initial encounter - Personal history of nicotine dependence - Chronic atrial fibrillation, unspecified - Chronic obstructive pulmonary disease, unspecified - Urinary tract infection, site not specified - Restless legs syndrome - security test engineer (current) use of aspirin - Weakness - Allergy status to narcotic agent - security test engineer (current) use of anticoagulants - Insomnia, unspecified - Pain in leg, unspecified - Fall on same level, unspecified, initial encounter - Opioid abuse, uncomplicated [email or web address]
== END 2021-04-24 22:13 | disposition home or self-care (01) ==
LOC: ED 18:43
DX: M79.604 Pain in right leg (principal); M79.605 Pain in left leg; G89.29 Other chronic pain; R05 Cough; R09.81 Nasal congestion; R19.7 Diarrhea, unspecified; R30.0 Dysuria; I48.91 Unspecified atrial fibrillation; Z87.891 Personal history of nicotine dependence; Z85.3 Personal history of malignant neoplasm of breast; Z87.442 Personal history of urinary calculi; Z90.710 Acquired absence of both cervix and uterus; Z88.5 Allergy status to narcotic agent; Z79.899 Other long term (current) drug therapy; Z79.82 Long term (current) use of aspirin; Z79.01 Long term (current) use of anticoagulants
CPT/HCPCS: 71045; 80053; 81001; 85025; 99284-25; C9803; U0003

== ENCOUNTER 2021-11-04 16:26 | Emergency (ER) | payer MEDICARE ==
[~2021-11-04] VITALS: Ht 165.1 cm; Wt 53.3 kg
--- OUTSIDE RECORDS SUMMARY | 2021-11-04 16:28 | XMS ---
PreManage Notification: ASHLIE PINEDA Security Formula Maker Events No recent Security Events currently on file CRITERIA MET - PDMP CARE PROVIDERS NICOLETTE KAT Nurse Practitioner 04/28/2021-Current PHONE: Unknown EDD JHAVERI Physician Patient Safety Sitter Current PHONE: [phone] Steven has no Care Guidelines for this patient. Care History Medical/Surgical 04/28/2021 [facility] - PATIENT CURRENTLY ON A PAIN CONTRACTED WITH NICOLETTE HERRERA AT [facility] IN [facility]. PATIENT IS STILL ACTIVE WITH THE PAIN CLINIC AND IS CURRENTLY PRN FOR PAIN- PATIENT HAS TO CALL IN FOR AN APT WHEN NEEDED. - CHW CALLED PATIENT NO ANSWER - CHW CALLED EDD JHAVERI- PCP- PATIENT LAST APT WITH CLINIC WAS JANUARY 2021. ALL ED FOLLOW UP APTS HAVE BEEN RESCHEDULED AND PATIENT HAS NOT BEEN SEEN FOR FOLLOW UP. - [facility] WILL BE FORWARDING PAIN CONTRACT TO CASE MANAGEMENT FOR FURTHER PAIN MANAGEMENT IN THE ED (PROVIDER DISCRETION). E.D. VISIT COUNT (12 MO.) [address] [facility] TOTAL 6 NOTE: Visits indicate total known visits. ED/UCC VISIT TRACKING (12 MO.) 11/04/2021 16:26 [facility] [place] TYPE: Emergency COMPLAINT: - BACK PAIN 04/24/2021 18:43 [facility] [place] TYPE: Emergency COMPLAINT: - WEAKNESS DIAGNOSES: - Personal history of urinary calculi - Nasal congestion - Personal history of malignant neoplasm of breast - Other termite control servicer (current) drug therapy - Personal history of nicotine dependence - care home (current) use of anticoagulants - Acquired absence of both cervix and uterus - Allergy status to narcotic agent - Dysuria - Unspecified atrial fibrillation - Pain in right leg - Cough - Diarrhea, unspecified - care home (current) use of aspirin - Other chronic pain - Pain in left leg 04/09/2021 22:43 [facility] [place] TYPE: Emergency COMPLAINT: - DIFFICULTY BREATHING DIAGNOSES: - Allergy status to narcotic agent - Chest pain, unspecified - Unspecified atrial fibrillation - Shortness of breath - Personal history of malignant neoplasm of breast - Other correction (current) drug therapy - Dorsalgia, unspecified - Chronic obstructive pulmonary disease, unspecified 03/12/2021 16:10 [facility] [place] TYPE: Emergency COMPLAINT: - POSSIBLE BLOOD CLOT DIAGNOSES: - Unspecified atrial fibrillation - Fall on same level, unspecified, initial encounter - Other termite control servicer (current) drug therapy - Personal history of malignant neoplasm of breast - Personal history of nicotine dependence - Contusion of right knee, initial encounter - Contusion of right thigh, initial encounter - termite control servicer (current) use of aspirin - Chronic obstructive pulmonary disease, unspecified - Allergy status to narcotic agent 03/07/2021 10:12 [facility] [place] TYPE: Emergency COMPLAINT: - WEAKNESS 02/02/2021 02:32 [facility] [place] TYPE: Emergency COMPLAINT: - ANXIETY DIAGNOSES: - termite control servicer (current) use of aspirin - Unspecified atrial fibrillation - Other termite control servicer (current) drug therapy - Personal history of malignant neoplasm of breast - Heart failure, unspecified - Personal history of nicotine dependence - Anxiety disorder, unspecified - Chronic obstructive pulmonary disease, unspecified INPATIENT VISIT TRACKING (12 MO.) 03/07/2021 10:13 [facility] [place] TYPE: Observation COMPLAINT: - FALLS DIAGNOSES: - Personal history of malignant neoplasm of breast - Other termite control servicer (current) drug therapy - Altered mental status, unspecified - Encounter for immunization - Unspecified osteoarthritis, unspecified site - Chronic pain syndrome - Contusion of right knee, initial encounter - Personal history of nicotine dependence - Chronic atrial fibrillation, unspecified - Chronic obstructive pulmonary disease, unspecified - Urinary tract infection, site not specified - Restless legs syndrome - care home (current) use of aspirin - Weakness - Allergy status to narcotic agent - care home (current) use of anticoagulants - Insomnia, unspecified - Pain in leg, unspecified - Fall on same level, unspecified, initial encounter - Opioid abuse, uncomplicated [email or web address]
== END 2021-11-04 20:42 | disposition home or self-care (01) ==
LOC: ED 16:26
DX: S20.222A Contusion of left back wall of thorax, initial encounter (principal); Z85.3 Personal history of malignant neoplasm of breast; M19.90 Unspecified osteoarthritis, unspecified site; I48.91 Unspecified atrial fibrillation; Z87.891 Personal history of nicotine dependence; Z88.5 Allergy status to narcotic agent; Z79.899 Other long term (current) drug therapy; Z79.82 Long term (current) use of aspirin; Z79.01 Long term (current) use of anticoagulants; W18.40XA Slipping, tripping and stumbling without falling, unspecified, initial encounter; W22.8XXA Striking against or struck by other objects, initial encounter
CPT/HCPCS: 71046; 99283-25

== ENCOUNTER 2022-09-29 13:51 | Emergency (ER) | payer MEDICARE ==
[~2022-09-29] VITALS: Ht 165.1 cm; Wt 53.1 kg
--- OUTSIDE RECORDS SUMMARY | 2022-09-29 13:55 | XMS ---
PreManage Notification: ASHLIE PINEDA Security Office Messenger Helper Events No recent Security Events currently on file CRITERIA MET - [facility] - Has Care Guidelines CARE PROVIDERS NICOLETTE KAT Nurse Practitioner 04/28/2021-Current PHONE: [phone] EDD JHAVERI Physician Digital Sales Director 04/10/2021-Current PHONE: [phone] Steven has no Care Guidelines for this patient. Care History Medical/Surgical 11/04/2021 [facility] - PATIENT CURRENTLY ON A PAIN CONTRACTED WITH NICOLETTE HERERRA AT [facility] IN [facility]. PATIENT IS STILL ACTIVE WITH THE PAIN CLINIC AND IS CURRENTLY PRN FOR PAIN- PATIENT HAS TO CALL IN FOR AN APT WHEN NEEDED. - CHW CALLED PATIENT NO ANSWER - CHW CALLED EDD JHAVERI- PCP- PATIENT LAST APT WITH CLINIC WAS JANUARY 2021. ALL ED FOLLOW UP APTS HAVE BEEN RESCHEDULED AND PATIENT HAS NOT BEEN SEEN FOR FOLLOW UP. E.D. VISIT COUNT (12 MO.) 2 [facility] TOTAL 2 NOTE: Visits indicate total known visits. ED/UCC VISIT TRACKING (12 MO.) 09/29/2022 13:52 [facility] [place] TYPE: Emergency COMPLAINT: - COLD SYMPTOMS, DIFFICULTY BREATHING 11/04/2021 16:26 [facility] [place] TYPE: Emergency COMPLAINT: - BACK PAIN/ NO INJURY DIAGNOSES: - Pain in thoracic spine - Personal history of nicotine dependence - Unspecified osteoarthritis, unspecified site - Personal history of malignant neoplasm of breast - Contusion of left back wall of thorax, initial encounter - Slipping, tripping and stumbling without falling, unspecified, initial encounter - watermelon inspector (current) use of aspirin - senior care (current) use of anticoagulants - Striking against or struck by other objects, initial encounter - Other terminal manager (current) drug therapy - Allergy status to narcotic agent - Unspecified atrial fibrillation INPATIENT VISIT TRACKING (12 MO.) No inpatient visits to display in this time frame [id number]
--- NOTE | 2022-09-30 07:19 | EKG ---
[facility] [address] [facility] [place] [address] Signed Atrial fibrillation with rapid ventricular response with premature ventricular or aberrantly conducted complexes Right axis deviation Pulmonary disease pattern Possible Right ventricular hypertrophy Nonspecific ST and T wave abnormality Abnormal ECG When compared with ECG of 09-APR-2021 22:52, Criteria for Septal infarct are no longer present Confirmed by KIRA SYLVESTER MD ([id number]) on 09/30/2022 7:19:18 AM Electronically Signed By: KIRA SYLVESTER MD 09/30/22 0719 PATIENT NAME: ASHLIE PINEDA ANN Electrocardiogram DATE OF : 45 PHYSICIAN: KIRA SYLVESTER MD REPORT #: [id number] REPORT IS CONFIDENTIAL AND NOT TO BE RELEASED WITHOUT AUTHORIZATION
== END 2022-09-29 20:39 | disposition home or self-care (01) ==
LOC: ED 13:51
DX: I50.9 Heart failure, unspecified (principal); I48.91 Unspecified atrial fibrillation; Z87.891 Personal history of nicotine dependence; Z88.5 Allergy status to narcotic agent; Z79.899 Other long term (current) drug therapy; Z79.01 Long term (current) use of anticoagulants; Z79.82 Long term (current) use of aspirin
CPT/HCPCS: 36415; 71045; 80053; 81001; 83735; 83880; 84484; 85025; 87502; 93005; 93010; 94640; 99285-25; U0003

== ENCOUNTER 2024-09-05 15:21 | Inpatient (IN) | payer MEDICARE ==
[~2024-09-05] VITALS: Ht 165.1 cm; Wt 45.7 kg
[2024-09-05 15:56] LABS: BASOPHILS 0.4 % (0-2); EOSINOPHILS 0.5 % (0-6); HEMATOCRIT 39.2 % (35.0-50.0); HEMOGLOBIN 13.1 g/dL (12.0-18.0); MCH 28.9 (27-36); MCHC 33.5 g/dl (30-36); MCV 86.5 fl (81-99); MONOCYTES 6.4 % (0-12); NEUTROPHILS 76.7 % (39-80); PLATELET COUNT 420 K/uL (140-440); RBC 4.54 M/ul (4.3-5.7); RDW 17.1 (10.5-15.0)
[2024-09-05 16:13] LABS: ALBUMIN 2.6 g/dL (3.4-5.0); ALBUMIN/GLOBULIN RATIO 0.57 (1.1-2.4); ANION GAP 14.7 (7-21); BILIRUBIN, TOTAL 1.2 ng/dL (0.2-1.0); BUN/CREATININE RATIO 14.45 (6.0-28.6); CALCIUM 8.8 mg/dL (8.5-10.1); CREATININE, SERUM 0.83 mg/dL (0.55-1.02); MAGNESIUM 1.7 mg/dL (1.8-2.4); POTASSIUM 3.7 mmol/L (3.5-5.1); PROTEIN, TOTAL 7.2 g/dL (6.4-8.2)
[2024-09-05] MEDS ORDERED: SODIUM CHLORIDE 0.9% 1,000 ML IV PRN (16:15)
[2024-09-05 16:44] LABS: CORONAVIRUS COVID-19 AG NEGATIVE (NEGATIVE); INFLUENZA A AG NEGATIVE (NEGATIVE); INFLUENZA B AG NEGATIVE (NEGATIVE)
[2024-09-05] MEDS ORDERED: FUROSEMIDE 40 MG/4 ML VIAL IV ONE (18:00)
[2024-09-05] MEDS ORDERED: MAGNESIUM SULFATE 2 GM/50 ML BAG IV ONE (18:00)
[2024-09-05] MEDS ORDERED: ACETAMINOPHEN 325 MG TAB PO PRN (19:30)
[2024-09-05] MEDS ORDERED: ondansetron HCL 4 MG/2 ML VIAL IV PRN (19:30)
[2024-09-05] MEDS ORDERED: bisacodyL 10 MG SUPP PR PRN (19:30)
[2024-09-05] MEDS ORDERED: NITROGLYCERIN 0.4 MG SUBL SL PRN (19:30)
[2024-09-05] MEDS ORDERED: AZITHROMYCIN 250 MG TAB PO SCH (19:31)
--- NOTE | 2024-09-05 20:00 | NUR ---
pt ARRIVED TO THE FLOOR VIA STRETCHER. pt TRANSFERED FROM THE BED TO THE BSC. pt TRANFERED FROM THE BSC TO THE BED. STANDING WEIGHT OBTAINED. NEW PUREWICK PLACED. ASSESSMENT AND VITAL SIGNS DONE. IV'S ASSESSED, WNL. SANDWICH BOX PROVIDED. pt DENIES ANY OTHER NEEDS AT THIS TIME. CALL LIGHT WITHIN REACH. WATER REFRESHED.
[2024-09-05 20:08] VITALS: BP 121/80
[2024-09-05] MEDS ORDERED: ALBUTEROL SULFATE 0.083% 3 ML VIAL INH PRN (20:15)
[2024-09-05] MEDS ORDERED: APIXABAN 5 MG TAB PO SCH (21:00)
[2024-09-05] MEDS ORDERED: MELATONIN 3 MG TAB PO PRN (21:00)
[2024-09-05] MEDS ORDERED: METOPROLOL TARTRATE 25 MG TAB PO SCH (21:00)
--- NOTE | 2024-09-05 21:16 | EKG ---
[facility] [address] [facility] [place], [place] [address] Signed Atrial fibrillation Right axis deviation Possible Right ventricular hypertrophy Abnormal QRS-T angle, consider primary T wave abnormality Abnormal ECG No previous ECGs available Confirmed by Romel Benjamin DO ([id number]) on 09/05/2024 9:16:51 PM Electronically Signed By: ROMEL BENJAMIN DO 09/05/242115 PATIENT NAME: ASHLIE PINEDA ANN Electrocardiogram DATE OF : 45 PHYSICIAN: ROMEL BENJAMIN DO REPORT #: [id number] REPORT IS CONFIDENTIAL AND NOT TO BE RELEASED WITHOUT AUTHORIZATION
--- NOTE | 2024-09-05 21:50 | NUR ---
PT GIVEN PRN TYLENOL FOR PAIN 5/10 KNEE AND NECK CHRONIC PAIN. WARM BLANKETS AROUND HER, CPOX READING 97%, HR 113; PLACED BED ALARM AND INFORMED PT TO WHY, CALL LIGHT WITHIN REACH. LIGHTS OUT, TV ON, SOUND LOW PER PT CHOICE.
--- NOTE | 2024-09-05 22:30 | NUR ---
TELE LEADS READJUSTED. pt DENIES ANY NEEDS AT THIS TIME. CALL LIGHT WITHIN REACH. IN RM TO CHECK ON pt.
[2024-09-06] VITALS (11 sets, daily range): BP systolic 98–105; BP diastolic 56–83
--- NOTE | 2024-09-06 00:10 | NUR ---
pt RESTING IN THE BED WITH EYES CLOSED. RR EVEN AND UNLABORED. CALL LIGHT WITHIN REACH. 2LNC ON.
--- NOTE | 2024-09-06 01:34 | NUR ---
pt RESTING IN THE BED WITH EYES CLOSED. RR EVEN AND UNLABORED. CALL LIGHT WITHIN REACH.
--- NOTE | 2024-09-06 01:57 | NUR ---
INSTRUCTOR EXTENSION WORK AND RN OBTAINED VITALS AND I&O. PUREWICK CANNISTER EMPTIED. PT BOOSTED AND REPOSTIONED IN BED. PT STATES NO NEEDS AT THIS TIME. CALL LIGHT WITHIN REACH AND BED ALARM ON.
--- NOTE | 2024-09-06 02:27 | NUR ---
VITAL SIGNS AND ASSESSMENT DONE. pt REPOSITIONED IN THE BED. 2LNC pt SATTING AT 91%. pt DENIES ANY OTHER NEEDS AT THIS TIME. CALL LIGHT WITHIN REACH.
--- NOTE | 2024-09-06 04:05 | NUR ---
pt RESTING IN BED WITH EYES CLOSED. RR EVEN AND UNLABORED. CALL LIGHT WITHIN REACH.
[2024-09-06 05:53] LABS: BASOPHILS 0.9 % (0-2); EOSINOPHILS 1.5 % (0-6); HEMATOCRIT 38.9 % (35.0-50.0); HEMOGLOBIN 12.6 g/dL (12.0-18.0); MCH 28.2 (27-36); MCHC 32.3 g/dl (30-36); MCV 87.3 fl (81-99); MONOCYTES 10.6 % (0-12); PLATELET COUNT 394 K/uL (140-440); RBC 4.45 M/ul (4.3-5.7); RDW 17.6 (10.5-15.0)
[2024-09-06 06:08] LABS: ANION GAP 10.8 (7-21); BUN/CREATININE RATIO 20.83 (6.0-28.6); CALCIUM 9.1 mg/dL (8.5-10.1); CREATININE, SERUM 0.96 mg/dL (0.55-1.02); MAGNESIUM 2.4 mg/dL (1.8-2.4); POTASSIUM 3.8 mmol/L (3.5-5.1)
--- NOTE | 2024-09-06 07:34 | NUR ---
RECIEVED MORNING REPORT FROM BUCKET HOOKER RN, PT LAYING IN BED WITH EYES CLOSED CHEST RISE EQUAL BILAT, WITH O2 @ 2L IN PLACE VIA NC, AND CPOX MONITOR ACTIVE. PT HAS CALL LIGHT WITHIN REACH.
--- NOTE | 2024-09-06 08:11 | NUR ---
PT SITTING UP IN BED, PT WAS EATING BREAKFAST AND HAS NO CURRRENT CONCERNS AT THIS TIME. PT WAS EMOTIONAL FOR A SHORT PERIOD STATING " SHE HAS LOST SO MUCH WEIGHT. PT HAS CALL LIGHT WITH IN REACH.
[2024-09-06] MEDS ORDERED: PANTOPRAZOLE SODIUM 40 MG TABEC PO SCH (09:00)
[2024-09-06] MEDS ORDERED: FLUOXETINE HCL 20 MG CAP PO SCH (09:00)
[2024-09-06] MEDS ORDERED: FUROSEMIDE 40 MG/4 ML VIAL IV SCH (09:00)
--- NOTE | 2024-09-06 10:20 | NUR ---
Spoke with Conchis, her niece and grandson. Per Conchis she lives in a house with 3 steps. Daughter and DAYAN live in a trailer in her driveway and assist her. Her grandson lives next door. Daughter does the drivings, shopping, cooking, cleaning for her. Pt states she does heat food in the microwave rarely. She uses a shower chair. when asked if she needs other DME, she states she will not use. Grandson, Emil, encourages her to get a walker. Pt refuses and states she will never use. Pt has a tub shower and does not have hand rails. Her daughter assists her to shower. Pt denies any needs. She is currently using 02, but does not have at home. She denies financial issues. She and her spouse, Dagoberto, do use a food box from the food bank. She also uses [employer] for utilities in the winter. She denies other needs.
--- NOTE | 2024-09-06 10:37 | NUR ---
PT NOT AVAILABLE FOR VISIT. PROVIDED PRAYER.
--- NOTE | 2024-09-06 10:45 | NUR ---
PT SITTING UPRIGHT IN BED WITH FAMILY PRESENT AT BEDSIDE. PT HAS NO CURRENT CONCERNS AT THIS TIME, CALL LIGHT WITHIN REACH.
--- NOTE | 2024-09-06 10:55 | NUR ---
UR CLINICAL REVIEW: 2 MN OLIVIA, MEETS INPT FOR ACUTE HYPOXIC RESPIRATORY FAILURE, PULMONARY EDEMA MEDICARE INPT 09/05/24 @ 1930 ORDER MATCHES REG. NO AUTH REQURIRED PER MEDICARE RULES PLAN TO DC TO HOME WHEN MEDICALLY STABLE.
[2024-09-06] MEDS ORDERED: FLUOXETINE HCL20 MG PO (11:32)
--- NOTE | 2024-09-06 11:35 | NUR ---
Manual BP taken (102/58).
[2024-09-06] MEDS ORDERED: PHARMACY RENAL DOSE ADJUSTMENT 1 DOSE MISC PO SCH (12:00)
--- NOTE | 2024-09-06 12:26 | NUR ---
PT MOVED TO CHAIR WITH HELP FROM PHYSICAL THERAPY, PHYSICAL THERAPY REMOVED THE PUREWICK AND WANTS PT TO AMBULATE MUCH SHE TOLERATES WHEN USING RESTROOM. PT DID DESAT ON 2L OF O2 AND WAS TITRATED UP TO 3L O2 WHEN AMBULATING. PT RETURNED TO CHAIR WITH CALL LIGHT WITHIN REACH.
--- NOTE | 2024-09-06 13:54 | NUR ---
PT SITTING IN BED WITH AT BEDSIDE, PT DID REPORT SHE FELT SLIGHTLY NAUSEATED AFTER LUNCH BUT THAT HAS RESUMED. PT HAS NO OTHER CONCERNS AT THIS TIME CALL LIGHT WITHIN REACH.
--- NOTE | 2024-09-06 13:54 | NUR ---
PATIENT IN BED AT THIS TIME. OPTICAL TECHNICIAN ASSISTED PATIENT TO BATHROOM AND THEN BACK TO BED FROM THE CHAIR, OPTICAL TECHNICIAN ALSO PROVIDED NEW [employer] @ 1350. CALL LIGHT WITHIN REACH, NO FURTHER NEEDS AT THIS TIME.
--- NOTE | 2024-09-06 14:46 | NUR ---
SPOKE WITH PT DAUGHTER/POC, THE DAUGHTER WANTED TO KNOW WHAT THE POC WAS MOVING FORWARD, DAUGHTER WAS INFORMED OF PT STATUS WELL CURRENT POC. PT DAUGHTER ALSO WAS CONCERNED ABOUT THE PT IV IN THE RIGHT AC DUE TO SCANT AMOUNT OF DRIED BLOOD UNDER DRESSING, PT IV WAS WNL AND FLUSHED WITHOUT RESISTANCE.
--- NOTE | 2024-09-06 15:59 | NUR ---
PT LAYING IN BED WITH DAUGHTER PRESENT AT BED SIDE. PT REPORTS NO CURRENT NEEDS AT THIS TIME CALL LIGHT WITHIN REACH.
--- NOTE | 2024-09-06 16:41 | NUR ---
PT LAYING IN BED WITH PRESENT AT BEDSIDE. PT DID EXPRESS THAT SHE IS STARTING TO FEEL UNCOMFORTABLE AND SAID SHE WOULD REQUEST TYLONOL SOON IF NEEDED. PT HAS NO OTHER CONCERNS AT THIS TIME AND CALL LIGHT WITHIN REACH.
--- NOTE | 2024-09-06 17:39 | NUR ---
BLADDER SCANNED PT 86ML. CASSIDY NOTIFIED. VERBAL ORDER TO INSERT INDWELLING FIERRO TO RULE OUT RETENTION.
--- NOTE | 2024-09-06 17:42 | NUR ---
PT REQUESTED TYLONOL FOR OVERALL BODY DISCOMFORT, AND DISCOMFORT OF CATHETER (SEE EMAR). PT HAS NO OTHER CONCERNS AT THIS TIME AND CALL LIGHT WTIHIN REACH.
--- NOTE | 2024-09-06 18:01 | NUR ---
THIS RN INSERTED INDWELLING FIERRO CATHETER, 16F, URINE PRESENT, 10ML BALLOON INFLATED INTO BLADDER. TOLERATED WELL. 175ML URINE OUTPUT, CLEAR. MINOR BURNING FROM IODINE, CLEANED AND BRIEF APPLIED.
--- NOTE | 2024-09-06 19:12 | NUR ---
shift report received from marcin minaya cj and prudence at bedside. pt resting in bed, 2lnc in place. rr even and unlabored, cpox at bedside. spo2 91%, hr 105. tele in place, afib per monitor. iv sites x2 wnl, saline locked. call light in reach.
--- NOTE | 2024-09-06 20:57 | NUR ---
PROOF MACHINE OPERATOR SUPERVISOR GAVE PT SOME SNACKS AND TOOK V/S.
--- NOTE | 2024-09-06 21:21 | NUR ---
ASSESSMENT COMPLETE, SCHEDULED MEDS GIVEN-SEE EMAR. FAINT CRACKLES NOTED IN LOWER LOBES, NO DISTRESS NOTED. VSS, pt AWAKE AND RESTING IN BED-DENIES SOB OR CHEST PAIN WHEN ASKED. REPORTS PAIN FROM LAST TYLENOL ADMINISTRATION IMPROVED, NO NEED FOR ADDITIONAL PAIN MEDS. IV SITES X2 WNL, FLUSHES EASILY, BRISK BLOOD RETURN NOTED. CPOX IN PLACE, pt TITRATED FROM 2LNC TO 1LNC, SPO2 SUSTAINING IN LO 90'S-WILL MONITOR. PER ORDERS, SPO2 GOAL 88-92%. RT JR MADE AWARE WELL. NO ADDITIONAL NEEDS OR CONCERNS, SNACK PROVIDED, WATER ALSO AT BEDSIDE. FIERRO PATENT, MONITORING URINE OUTPUT.
--- NOTE | 2024-09-06 22:45 | NUR ---
rounded on pt, gypsum block setter in room completing rocha care and emptying catheter. rr even and unlabored, no distress noted, remains on 1lnc. cpox at bedside.
--- NOTE | 2024-09-06 22:59 | NUR ---
MARKET DEVELOPMENT SPECIALIST COMPLETED CATH CARE AND EMPTIED FIERRO. PT STATES NO NEEDS AT THIS TIME. CALL LIGHT WITHIN REACH.
--- NOTE | 2024-09-06 23:34 | NUR ---
EXPERIENTIAL THERAPIST BLADDER SCANNED PT AT PRIMARY RN REQUEST. BLADDER SCANNER SHOWED 5ML. PRIMARY RN NOTIFED. PT STATES NO NEEDS AT THIS TIME. CALL LIGHT WITHIN REACH.
--- NOTE | 2024-09-06 23:39 | NUR ---
DISCUSSED UO WITH TELEVISION CABLE INSTALLERKALEIGH CURIEL SINCE START OF SHIFT, 50MLS THUS FAR. FOLET PATENT AND INSURANCE WRITER BLADDER SCANNED pt TO ENSURE ACCURACY. pt AWAKE AND RESTING IN BED, ENCOURAGED TO DRINK FLUIDS WHEN AWAKE. pt VERBALIZED UNDERSTANDING.
[2024-09-07] VITALS (17 sets, daily range): BP systolic 81–122; BP diastolic 48–87
--- NOTE | 2024-09-07 00:52 | NUR ---
rounded on pt, pt awake and watching tv, remains on 1lnc-rr even and unlabored. pt states, "i've been working on drinking the water". rocha remains patent, rocha emptied for 100mls and charted. call light in reach. fresh ice water provided.
--- NOTE | 2024-09-07 01:46 | NUR ---
rocha remains patent, output continues to be concentrated. pt resting in bed with eyes closed, on 1lnc. cpox at bedside, spo2 90-91%, hr wnl. call light in reach.
--- NOTE | 2024-09-07 02:10 | NUR ---
EMBEDDED SYSTEMS DEVELOPER OBTAINED VITALS AND I&O. FIERRO BAG EMPTIED. PT STATES NO FURTHER NEEDS AT THIS TIME. CALL LIGHT WITHIN REACH.
--- NOTE | 2024-09-07 02:26 | NUR ---
FOCUSED ASSESSMENT COMPLETE, NO ACUTE CHANGES. FINE CRACKLES REMAIN IN LOWER LOBES, IMPROVES WITH COUGH. pt DENIES SOB, REMAINS ON TELE. IV SITES X2 WNL, 0200 VSS. NO ADDITIONAL NEEDS OR CONCERNS, PO INTAKE ENCOURAGED WHEN AWAKE. CALL LIGHT IN REACH.
--- NOTE | 2024-09-07 04:06 | NUR ---
rounded on pt, pt resting in bed with eyes closed, spo2 90-91% on 1lnc, hr 80's. rr even and unlabored, call light in reach.
[2024-09-07] MEDS ORDERED: ALBUMIN HUMAN 25% 100 ML BTL IV ONE ×2 (04:30→11:45)
--- NOTE | 2024-09-07 04:37 | NUR ---
DR BENJAMIN AT RN STATION. UPDATED MD ON INTAKE/OUTPUT THIS SHIFT AND MOST RECENT BLOOD PRESSURE. VERBAL ORDER READ BACK FOR ALBUMIN HUMAN 25% X1 IV DOSE FOR NOW- ONE BOTTLE= 25 GM.
[2024-09-07 05:30] LABS: ANION GAP 12.6 (7-21); CALCIUM 8.6 mg/dL (8.5-10.1); CREATININE, SERUM 0.92 mg/dL (0.55-1.02); MAGNESIUM 1.8 mg/dL (1.8-2.4); POTASSIUM 3.6 mmol/L (3.5-5.1)
--- NOTE | 2024-09-07 05:46 | NUR ---
ordered albumin infusing as directed, iv site wnl with brisk blood return noted. pt reported discomfort to back and knees, improved after boosting pt and prn tylenol given-see emar. pt remains on 1lnc, cpox at bedside. call light in reach.
--- NOTE | 2024-09-07 06:17 | NUR ---
albumin infusion completed, iv sites x2 remains wnl and saline locked. pump cleared. hob remains elevated for pt comfort, call light in reach. pt deneis additioanl needs or concerns.
--- NOTE | 2024-09-07 07:27 | NUR ---
RECIEVED MORNING REPORT FROM KALEIGH ROGERS. PT LAYING IN BED WITH EYES CLOSED CHEST RISE EQUAL BILAT. SMALL AMOUNT OF URINE IN CATH BAG CONCENTRATED YELLOW IN COLOR. PT CPOX ON/IN PLACE O2 @ 92% ON 1L O2 PT HAS CALL LIGHT WITHIN REACH.
--- NOTE | 2024-09-07 09:30 | NUR ---
PT SITTING IN CHAIR, PT DID NOT EAT MUCH OF HER BREAKFAST DUE TO LACK OF APPETITE. PT HAS NO REQUESTS AT THIS TIME CALL LIGHT WTIHIN REACH.
--- NOTE | 2024-09-07 09:30 | NUR ---
Spoke with Conchis. No needs. Resting.
[2024-09-07] MEDS ORDERED: VITAMIN C500 M1 PO (10:17)
[2024-09-07] MEDS ORDERED: VITAMIN D31250 MC2 PO (10:17)
--- NOTE | 2024-09-07 10:18 | NUR ---
MED REC COMPLETE
--- NOTE | 2024-09-07 10:51 | NUR ---
RECEIVED CALL FROM CCU - TELEMETRY SHOWING VT AT THIS TIME. PT CURRENTLY WORKING WITH OT IN THE BATHROOM, WAS BRUSHING TEETH STANDING AT THE SINK WHEN REPORTS TO OT THAT SHE WAS HAVING CHEST PAIN, SAT DOWN ON THE COMMODE IN THE BATHROOM. SATS 91% WHEN CHECKED AND CONNECTED, PT AMBULATED TO THE BED, DID NOT REPORT INCREASED PAIN, BUT UPON GETTING TO BED VS TAKEN, SHOW HYPOTENSION. PT STATES PAIN IS STILL PRESENT, FEELS TIGHT IN THE CHEST. INFORMED EKG ORDERED STAT. RT CALLED AND REPORTS TO BEDSIDE FOR EKG. PT WAS ABLE TO AMBULATE TO THE BED WITHOUT WORSENING SYMPTOMS BUT SX WERE PERSISTENT SHE STATES. RESTING IN BED SHE IS PRESSING DEEP INTO HER CHEST, DOES NOT REPORT INCREASED SHORTNESS OF BREATH. SATS NOW 91% ON 1L NC. GIVEN VITALS/EKG.
[2024-09-07] MEDS ORDERED: HYDROmorphone HCL 1 MG/ML SYR IV PRN (11:00)
--- NOTE | 2024-09-07 11:14 | NUR ---
PT GIVEN DILAUDID FOR THE CHEST PAIN PER MD, GI COCKTAIL BEING TAKEN AT THIS TIME. BLOODPRESSURE REMAINS LOW AT THIS TIME. PT STATES SHE FEELS THE PRESSURE IS EASING UP ALITTLE, SHE FEELS THE PRESSURE/PAIN IS NOT SEVERE. FEELS IT IS SPACING OUT ON/OFF PRESSURE.
[2024-09-07] MEDS ORDERED: LIDOCAINE & ANTACID 35 ML BTL PO ONE (11:15)
--- NOTE | 2024-09-07 11:18 | NUR ---
IV BOLUS INFUSING AT THIS TIME, HAS ABOUT 1/4 OF THE BOLUS INFUSED. PRESSURE IS STARTING TO COME UP, 92/61 (67). PAIN IS SUBSIDING BUT PATIENT STATES IT IS STILL THERE ON/OFF. BED ALARM IN PLACE. GI COCKTAIL GIVEN COMPLETELY.
--- NOTE | 2024-09-07 11:30 | NUR ---
PT NOT AVAILABLE FOR VISIT. PROVIDED PRAYER.
[2024-09-07 11:33] LABS: ALBUMIN 2.9 g/dL (3.4-5.0); ALBUMIN/GLOBULIN RATIO 0.69 (1.1-2.4); ANION GAP 12.4 (7-21); BILIRUBIN, TOTAL 1.1 ng/dL (0.2-1.0); BUN/CREATININE RATIO 23.4 (6.0-28.6); CALCIUM 8.8 mg/dL (8.5-10.1); CREATININE, SERUM 0.94 mg/dL (0.55-1.02); MAGNESIUM 1.8 mg/dL (1.8-2.4); PHOSPHORUS, INORGANIC 3.6 mg/dL (2.5-4.9); POTASSIUM 3.4 mmol/L (3.5-5.1); PROTEIN, TOTAL 7.1 g/dL (6.4-8.2); TSH, 3RD GENERATION 1.923 uIU/mL (0.358-3.740)
--- NOTE | 2024-09-07 11:41 | NUR ---
CASSIDY VERBAL TO ONLY GIVE 500ML OF THE IVF BOLUS. 633ML INFUSED AT TIME MD GAVE VERBAL ORDER. MD OKAY WITH AMOUNT INFUSED.
[2024-09-07] MEDS ORDERED: POTASSIUM CHLORIDE 40 MEQ,LIDOCAINE HCL 1% 40 MG in DEXTROSE 5% 250 ML IV ONE (11:45)
--- NOTE | 2024-09-07 12:08 | NUR ---
IMAGING NOTIFIED OF STAT ORDER PLACED BY . STATES THEY WILL BE DOWN SHORTLY. PT RESTING IN BED IN NO DISTRESS, REPORTS HER CHEST PAIN IS GONE AT THIS TIME. INFORMED HER OF THE IMAGING, PT AGREES. CALL LIGHT IN REACH, NO REQUESTS AT THIS TIME.
--- NOTE | 2024-09-07 12:17 | NUR ---
IMAGING ARRIVES, PT ESCORTED TO IMAGING AND WHEELCHAIR AT THIS TIME.
--- NOTE | 2024-09-07 13:08 | NUR ---
PT RESTING IN BED, PRESENT AT BEDSIDE. PT CANNOT BELIEVE SHE HAD ALL THE NURSES/MD AT HER BEDSIDE, SHE FEELS SILLY. PT FEELING BETTER AT THIS TIME. ALBUMIN/POTASSIUM REPLACEMENT INFUSING AT THIS TIME. ALL PT CARE NEEDS MET, CALL LIGHT WITHIN REACH
[2024-09-07] MEDS ORDERED: AZITHROMYCIN 250 MG TAB PO SCH (13:45)
[2024-09-07] MEDS ORDERED: CEFTRIAXONE/SODIUM CHLORIDE 1 GM/100 ML PIGGYBACK IV SCH (13:45)
[2024-09-07] MEDS ORDERED: NITROGLYCERIN PACKET TOP PRN (14:00)
--- NOTE | 2024-09-07 14:09 | NUR ---
PT IV TO R AC SALINE LOCKED AT THIS TIME. PT RESTING IN BED WATCHING TELEVISION, VISITOR PRESENT AT BEDSIDE. PT CONVERSING PLEASANTLY, NO REPORTS OF PAIN OR DISCOMFORT. CALL LIGHT IN REACH.
--- NOTE | 2024-09-07 15:32 | NUR ---
PT LAYING IN BED, PT STATES " SHE IS TIRED AND FEELS WORN OUT FROM WHAT HAPPENED EARLIER IN THE DAY". PT WAS REPOSITIONED IN BED, AND HAS NO OTHER NEEDS AT THIS TIME CALL LIGHT WITHIN REACH.
--- NOTE | 2024-09-07 16:57 | NUR ---
PT WAS SPEAKING WITH DAUGHTER ON THE PHONE WHEN SHE REPORTED SHE FELT EXTREMLY NAUSEOUS. PT REQUESTED/RECIEVED ZOFRAN (SEE EMAR). PT DID NOT VOMIT. PT STATES " SHE IS FEELING MUCH BETTER NOW" PT CALL LIGHT WITHIN REACH.
--- NOTE | 2024-09-07 17:00 | NUR ---
PT SITTING IN BED WITH EYES CLOSED CHEST RISE EQUAL BILAT. PT CALL LIGHT WITHIN REACH.
--- NOTE | 2024-09-07 18:02 | NUR ---
PT SITTING UP IN BED EATING DINNER PT IS NOT REPORTING ANY NAUSEA AND STATES " SHE HAS A LITTLE MORE OF AN APITITE. PT HAS NO CURRENT CONCERNS AT THIS TIME CALL LIGHT WITHIN REACH.
--- NOTE | 2024-09-07 18:40 | NUR ---
PT SITTING UP IN BED WATCHING TV PT HAS NO CURRENT NEEDS AT THIS TIME PT STATES " SHE IS FEELING BETTER THEN EARLIER". PT HAS NO OTHER CONCERNS AT THIS TIME CALL LIGHT WTIHIN REACH.
[2024-09-07] MEDS ORDERED: POLYETHYLENE GLYCOL 3350 1 PACKET PO SCH (21:00)
[2024-09-07] MEDS ORDERED: SENNOSIDES/DOCUSATE 1 EA TAB PO SCH (21:00)
--- NOTE | 2024-09-07 21:49 | EKG ---
[facility] [address] [place], [place] [address] Signed Atrial fibrillation with rapid ventricular response Right axis deviation Possible Right ventricular hypertrophy Nonspecific T wave abnormality Abnormal ECG No previous ECGs available Confirmed by Viridiana Benjamin DO ([id number]) on 09/07/2024 9:48:55 PM Electronically Signed By: VIRIDIANA BENJAMIN DO 09/07/24 2149 PATIENT NAME: ASHLIE PINEDA ANN Electrocardiogram DATE OF : 45 PHYSICIAN: VIRIDIANA BENJAMIN DO REPORT #: [id number] REPORT IS CONFIDENTIAL AND NOT TO BE RELEASED WITHOUT AUTHORIZATION
--- NOTE | 2024-09-07 21:52 | EKG ---
[facility] [address] [place] [address] Signed Atrial fibrillation with premature ventricular or aberrantly conducted complexes Possible Right ventricular hypertrophy Abnormal ECG When compared with ECG of 05-SEP-2024 18:21, (Unconfirmed) Nonspecific T wave abnormality, improved in Anterior leads QT has lengthened Confirmed by Romel Benjamin DO ([id number]) on 09/07/2024 9:52:02 PM Electronically Signed By: ROMEL BENJAMIN DO [id number] PATIENT NAME: ASHLIE PINEDA ANN Electrocardiogram DATE OF : 45 PHYSICIAN: ROMEL BENJAMIN DO REPORT #: [id number] REPORT IS CONFIDENTIAL AND NOT TO BE RELEASED WITHOUT AUTHORIZATION
--- NOTE | 2024-09-07 22:35 | NUR ---
tELE IN PLACE, NO C/O cp. ON ROOM AIR, LUNGS WITH FINE CRACKLES AT BASES. O2 1LNC IN PLACE, F/C IN PLACE, BOTH NOT CHRONIC. F/C DRAINING ORANGE COLORED URINE. DENIES C/O PAIN. HELPED WITH TURNING AND REPOSITIONING. TRACE EDEMA TO ANKLES, ELEVATED. STARTED ON BOWEL CARE ROUTINE, MED TEACHING DONE, STATED UNDERSTANDING. ATTENDS IN PLACE. [address]
[2024-09-08] VITALS (15 sets, daily range): BP systolic 96–135; BP diastolic 55–64
--- NOTE | 2024-09-08 00:32 | NUR ---
Resting, eyes closed, O2 1LNC in place, no s/sx sob or discomfort. Bed alrms on nursing judgement. f/c patent
--- NOTE | 2024-09-08 01:21 | NUR ---
LAYOUT ARTIST OBTAINED VITALS AND I&O. CATH BAG EMPTIED. PT STATES NO NEEDS AT THIS TIME. CALL LIGHT WITHIN REACH.
--- NOTE | 2024-09-08 04:43 | NUR ---
Resting, no c/o distress. on 1L O2 NC, cpox on at bedside, sats WNL. alarms on for nursing judgement
--- NOTE | 2024-09-08 05:21 | NUR ---
Awake, O2 1lNC cpox on at bedside. SOb with exertion, sats dropped to 88% and then up to 90's. standing daily weight 45.9KG. Cooperative with labs and vitals. f/c patent. took small amount of sips of fluid
[2024-09-08 05:43] LABS: BASOPHILS 1.5 % (0-2); EOSINOPHILS 1.6 % (0-6); HEMATOCRIT 34.4 % (35.0-50.0); HEMOGLOBIN 11.3 g/dL (12.0-18.0); LYMPHOCYTES 20.8 % (24-44); MCH 28.3 (27-36); MCHC 32.9 g/dl (30-36); MONOCYTES 10.1 % (0-12); PLATELET COUNT 405 K/uL (140-440); RDW 16.9 (10.5-15.0)
[2024-09-08 05:54] LABS: ANION GAP 8.5 (7-21); BUN/CREATININE RATIO 19.27 (6.0-28.6); CALCIUM 9.2 mg/dL (8.5-10.1); CREATININE, SERUM 0.83 mg/dL (0.55-1.02); MAGNESIUM 1.9 mg/dL (1.8-2.4); POTASSIUM 4.5 mmol/L (3.5-5.1)
--- NOTE | 2024-09-08 07:29 | NUR ---
MORNING REPORT RECIEVED FROM KALEIGH PEREZ. PT LAYING IN BED AWAKE AND STATED "SHE DID NOT SLEEP WELL AND HOPES TO BE ABLE TO NAP TODAY". PT HAS NO CONCERNS AT THIS TIME CALL LIGHT WITHIN REACH.
--- NOTE | 2024-09-08 08:18 | NUR ---
Board is updated and call light has been placed within reach, No request from patient at this tiume
[2024-09-08] MEDS ORDERED: FLUOXETINE HCL 20 MG CAP PO SCH (09:00)
--- NOTE | 2024-09-08 10:11 | NUR ---
PT SITTING IN BED, PT ATE 50% OF BREAKFAST AND STATES " SHE DOES NOT FEEL NAUSEOUS". PT HAS CALL LIGHT WITHIN REACH AND NO OTHER CONCERNS AT THIS TIME.
[2024-09-08] MEDS ORDERED: ALBUMIN HUMAN 25% 100 ML BTL IV ONE (10:45)
--- NOTE | 2024-09-08 10:50 | NUR ---
DISSCUSSED WITH MD ABOUT MORNING BP AND HOLDING METOPROLOL. MD AGREED. ORDERED IV ALBUMIN.
--- NOTE | 2024-09-08 11:31 | NUR ---
PT LAYING IN BED WITH FAMILY PRESENT AT BED SIDE, PT GIVEN ALBUMIN (SEE EMAR). PT HAS CALL LIGHT WITHIN REACH AND NO CURRENT CONCERNS AT THIS TIME.
--- NOTE | 2024-09-08 12:03 | NUR ---
PT SITTING IN BED WITH FAMILY PRESENT AT BED SIDE PT ALBUMIN FINISHED AND PT IV SL. PT HAS NO REQIESTS AT THIS TIME.
--- NOTE | 2024-09-08 12:46 | NUR ---
PT SITTING UP IN CHAIR PT REPORTED SHE WORK WITH PHYSICAL THERAPY AND SHE TOLERATED IT WELL. PT CURRENTLY EATING LUNCH WITH NO CONCERNS CALL LIGHT WITHIN REACH.
--- NOTE | 2024-09-08 14:39 | NUR ---
PT MOVED FROM CHAIR TO BED AND TOLERATED WELL 1PA. PT HAS CALL LIGHT WITHIN REACH AND NO CURRENT CONCERNS AT THIS TIME.
--- NOTE | 2024-09-08 15:36 | NUR ---
PT IS LAYING IN BED WITH EYES CLOSED AND CHEST RISE EQUAL BILAT, PT IS AT BEDSIDE, PT CALL LIGHT WITHIN REACH AND 1L NC INPLACE WITH CPOX READING 91%.
--- NOTE | 2024-09-08 16:38 | NUR ---
PT LAYING IN BED WITH FAMILY MEMBERS AT BEDSIDE. PT STATES " SHE IS COMFORTABLE AND DOES NOT HAVE ANY NEEDS RIGHT NOW". PT HAS CALL LIGHT ALLIE LIND.
--- NOTE | 2024-09-08 17:13 | NUR ---
PT SITTING UP IN BED EATING DINNER PT HAS CALL LIGHT WITHIN REACH. PT HAS NO CONCERNS AT THIS TIME.
--- NOTE | 2024-09-08 17:39 | NUR ---
PT LAYING IN BED EATING DINNER, PT STATED " SHE FEELS WARM, BUT SAID SHE FEELS FINE". PT HAS CALL LIGHT WITH IN REACH AND CPOX IN PLACE. PT HAS NO OTHER CONCERNS AT THIS TIME.
--- NOTE | 2024-09-08 18:03 | NUR ---
FIERRO CATHETER REMOVED. PT DENIES DISCOMFORT. DISCUSSED NEEDING TO GET UP AND URINATE WHEN POSSIBLE. CALL LIGHT IN REACH
--- NOTE | 2024-09-08 18:17 | NUR ---
PT RESTING IN BED FIERRO CATH DC'D PER ORDER. PT IN BED WITH CALL LIGHT IN REACH. FWW WALKER IN ROOM FOR AMBULATION PT IS A 1PA FWW.
--- NOTE | 2024-09-08 19:30 | NUR ---
PT WAS COMPLAINING OF BEING HOT, PT WAS DIAPHORETIC, BUT DENIED SOB, CHEST PAIN, OR ANY DISICOMFORT. PT ROOM TEMP TURNED DOWN, AND ORAL TEMP TAKEN, AND WAS WNL. KALEIGH PEREZ WAS NOTIFIED DURING SHIFT CHANGE.
--- NOTE | 2024-09-08 19:47 | NUR ---
ON 1L NC O2. ALERT AND ORIENTED. 2 SL PATENT BOTH AC'S. FLUSHED EASILY. NO C/O PAIN OR SOB. TELE#[address] AFIB, TACHY WHEN UP TO BRP. LUNGS CLEAR WITH FINE CRACKLES AT BASES. 1PA/FWW. COOPERATIVE WITH ASSESSMENTS
--- NOTE | 2024-09-08 21:10 | NUR ---
BP 96/60, PROPANOLOL HELD. TOOK MEDS W/O PROBLEMS, SMALL BRUISED AREAS ARMS HEALING. AWAKE, ALERT AND ORINETED. ON 1LNC, CPOX AT BEDSIDE
--- NOTE | 2024-09-08 21:29 | NUR ---
DR JONES IN ROOM ASSESSING PT. STATED OK TO GIVE MED LONG MAP IS OVER 60. PT AWAKE, ALERT AND ORIENTED, MED S/SE TEACHING DONE, STATED UNDERSTANDING
[2024-09-09] VITALS (13 sets, daily range): BP systolic 90–120; BP diastolic 55–72
--- NOTE | 2024-09-09 00:41 | NUR ---
resting, eyes closed. On 1LNC O2, no s/sx distress. tele#[address] Iregular rhythm
--- NOTE | 2024-09-09 02:51 | NUR ---
PT VERY DIAPHORETIC, SKIN COLOR NORMAL, NO C/O N/V OR LIGHTHEADNESS AT THAT TIME. TELE#[address], AFIB. NO C/O CP.UP TO BRP 1PA/FWW, VOIDED SMALL AMOUNT MEDIUM YELLOW URINE. TOLERATED WELL SKIN CARE DONE. BEDLINEN AND GOWN CHANGED, BACK TO BED W 1 PA, DECLINED TO WALKER ON RETURN. "ITS A HINDRANCE" STATES. DAILY STANDING WEIGHT 44.8KG. DECLINED SIPS OF FLUIDS. C/O FEELING SICK TO HER STOMACH. CBG DONE PRN NURSING JUDGEMENT 93. VS WNL. MEDICATED WITH ZOFRAN IV. CPOX ON AT BEDSIDE, 02 1LNC AT ALL TIMES. NO SOB NOTED ON RETURN, TELE#[address] PULSE BECOMES TACHY WHEN UP WASLKING UP TO 130 NON SUSTAINED. SATS ON RETURN WNL. BACK TO BED. ALERT AND ORIENTED PLEASANT AND COOPERATIVE, WILL CONTINUE TO OBSERVE, PT INSTRUCTED TO NOTIFY NURSING PERSONNEL OF ABNORMALS. STATED UNDERSTANDING
[2024-09-09 05:15] LABS: BASOPHILS 3.3 % (0-2); EOSINOPHILS 2.1 % (0-6); HEMATOCRIT 37.3 % (35.0-50.0); HEMOGLOBIN 12.1 g/dL (12.0-18.0); LYMPHOCYTES 12.1 % (24-44); MCH 28.1 (27-36); MCHC 32.5 g/dl (30-36); MCV 86.3 fl (81-99); MONOCYTES 13.3 % (0-12); NEUTROPHILS 69.2 % (39-80); PLATELET COUNT 363 K/uL (140-440); RBC 4.32 M/ul (4.3-5.7); RDW 17.2 (10.5-15.0)
[2024-09-09 05:24] LABS: ANION GAP 8.9 (7-21); BUN/CREATININE RATIO 21.42 (6.0-28.6); CALCIUM 9.5 mg/dL (8.5-10.1); CREATININE, SERUM 0.84 mg/dL (0.55-1.02); MAGNESIUM 2.1 mg/dL (1.8-2.4); POTASSIUM 3.9 mmol/L (3.5-5.1)
--- NOTE | 2024-09-09 06:37 | NUR ---
RESTING, O2 1LNC, CPOX AT BEDSIDE. EYES CLOSED, TELE#[address], AFIB RHYTHM.
--- NOTE | 2024-09-09 07:20 | NUR ---
MORNING SHIFT REPORT RECIEVED FROM KALEIGH PEREZ. PT LAYING IN BED WITH EYES CLOSED CHEST RISE EQUAL BILAT. PT CONNECTED TO CPOX, O2 SAT 93% P 95. PT HAS CALL LIGHT WITHIN REACH.
[2024-09-09] MEDS ORDERED: METOPROLOL TARTRATE 25 MG TAB PO SCH (09:00)
--- NOTE | 2024-09-09 10:09 | NUR ---
PT BLOOD PRESSURE WAS 98/55 @0837 METOPROLOL WAS NOT GIVEN DUE TO RN DISCRETION. PT HAD JUST WOKEN UP AT THAT TIME. PT BP RECHECKED @1009 AND BP WAS 102/63, METOPROLOL WAS GIVEN (SEE EMAR). PT IV IN THE RIGHT AC WAS REPORTED TO BE LEAKING, BUT IV WAS FLUSHED AND STILL PATENT, IV DRESSING CHANGED, WITH WINDOW DRESSING. PT HAS NO CONCERNS AT THIS TIME, CALL LIGHT WITHIN REACH.
--- NOTE | 2024-09-09 11:15 | NUR ---
SPOKE WITH MD JONES ABOUT SBP PERAMETERS ON PT METOPROLOL. MD JONES GAVE VERBAL ORDERS TO HOLD METOPROLOL IF SBP IS LESS THEN 95.
--- NOTE | 2024-09-09 11:27 | NUR ---
PATIENT UP TO BATHROOM AND THEN TO CHAIR, 1PA FWW. PATIENT REFUSED SHOWER AT THIS TIME, WILL ASK AGAIN LATER. CALL LIGHT IN REACH. NO FURTHER NEEDS AT THIS TIME. NOW IN ROOM.
[2024-09-09] MEDS ORDERED: predniSONE 20 MG TAB PO SCH (11:38)
[2024-09-09] MEDS ORDERED: LACTATED RINGER'S 1,000 ML IV SCH (11:45)
--- NOTE | 2024-09-09 12:36 | NUR ---
PT SITTING IN CHAIR EATING LUNCH, PT IV STARTED 20G IN THE RIGHT FA BY KALEIGH DE LEON WITH LR'S @500ML/HR (SEE EMAR). PT HAS NO CONCERNS AT THIS TIME CALL LIGHT WITHIN REACH.
--- NOTE | 2024-09-09 13:43 | NUR ---
PT SITTING IN CHAIR AND HAD JUST FINISHED LUNCH, PT SPOUSE IN ROOM AT CHAIR SIDE. PT HAD FINISHED 500ML OF LR FLUID, SO LUNGS WERE INSPECTED AND FINE CRACKLES COULD BE HEARD THROUGHOUT RIGHT AND LEFT UPPER/LOWER LOBES. PT HAS CALL LIGHT WITHIN REACH.
--- NOTE | 2024-09-09 14:15 | NUR ---
KALEIGH DE LEON SPOKE WITH PT FAMILY MEMBERS, DAUGHTER, AND SON. FAMILY WAS INFORMED OF THE POC CONTINUING FORWARD. FAMILY WAS UNDERSTANDING AND NO FURTHER QUESTIONS AT THIS TIME. PT IS SITTING IN CHAIR WITH FAMILY IN ROOM PT HAS CALL LIGHT IN REACH.
--- NOTE | 2024-09-09 14:45 | NUR ---
LR INFUSION COMPLETE. SALINE LOCKED. IV PATENT. PATIENT AMB TO BATHROOM. SPO2 DESATURATION NOTED TO 85% PATIENT ASYMPTOMATIC, DENIES SOB, RR EVEN AND UNLABORED AT THIS TIME. PATIENT RECOVERED WHILE SITTING. PATIENT PRODUCED ONE LARGE FORMED BM. AMB TO BED. DESATURATION NOTED TO 88% BUT PATIENT REMAINS ASMYPTOMATIC. PULSE OXIMETER REPLACED. SPO2 IN BED 92%. PATIENT CONTINUES TO RECEIVE HUMIDIFIED AIR BY 1L NC. PATIENT ENCOURAGED TO UTILIZE VIBRAPEP DEVICE 10X PER HOUR WHILE AWAKE. PATIENT DEMONSTRATED PROPER USE 10X. DRY COUGH PRODUCED. NO FURTHER NEEDS AT THIS TIME. CALL LIGHT IN REACH.
--- NOTE | 2024-09-09 15:23 | NUR ---
PT SITTING UP IN BED WITH BEDSIDE IN ROOM. PT HAS NO PAIN OR NAUSEA AT THIS TIME, AND HAS NOT EXPREIENCED ANY SOB. PT WORKED WITH PHYSICAL THERAPY AND TOLERATED WELL. PT HAS CALL LIGHT WITHIN REACH.
--- NOTE | 2024-09-09 16:37 | NUR ---
PT GIVEN CHF PACKET, AND EDUCATED ON SIGNS, SYMPTOMS, AND LIFESTYLE CHANGES TO MONITOR CHF. PT WAS RECEPTIVE BUT CONTINUE TO REINFORCE. PT STATES " HER DAUGHTER WILL TAKE CARE OF THAT FOR HER". I PLAN TO ALSO INFORM THE DAUGHTER OF THE CHF PACKET WHEN THEY COME VISIT. PT IS CURRENTLY RESTING IN BED, WITH CALL LIGHT IN REACH AND CPOX ON. PT HAS NO CONCERNS AT THIS TIME.
--- NOTE | 2024-09-09 17:40 | NUR ---
PT SITTING UP IN BED, PT EXPRESSES NO CONCERNS AT THIS TIME. PT STATED " SHE WANTS TO TRY AND TAKE A NAP BECAUSE PEOPLE KEEP SHOWING UP AND WAKING HER" PT HAS CALL LIGHT IN REACH.
--- NOTE | 2024-09-09 18:41 | NUR ---
PT SITTING UP IN BED, PT SAID THAT HER IV WAS BUGGING HER BECAUSE SHE KEPT GETTING IT CAUGHT ON STUFF. PT ARM WRAPPED IN WASH CLOTH AND LIGHTLY WRAPPED COBAN AROUND IV SITE. PT HAS CALL LIGHT IN REACH AND NO CONCERNS AT THIS TIME
--- NOTE | 2024-09-09 20:19 | NUR ---
Eyes closed, awakens easily. On 1LNC not chronic, CPOX on at bedside, wnl. cooperative with assessment. Lungs with fine crackle t/o. denies cough. SL patent. Bruising of arms in different stages of healing. repositions self in bed, hob elevated. tele#[address] afib rhythm. denies c/o CP. Alarms on per fall precaution
--- NOTE | 2024-09-09 21:54 | NUR ---
Awake, watching tv, O2 2LNC, lungs w fine crackles t/o and dim at bases. O2 not chronic. Up to BRP, voided dark colored urine QS. Back to bed with minimum of SBY assist, much improved gait. no SOB on return, tolerated well, Tele#[address], tachy when walking, no resp changes. SL patent RA. took meds w/o problems, LE elevated. Alarms for fall precautions. Smiling, more talkative, alert and oriented to all, denies CP.
--- NOTE | 2024-09-10 01:02 | NUR ---
resting, eyes closed, O2 1LNC, bedside cpox in place, sats wnl. resting l side. alarms on for safety
[2024-09-10 01:25] VITALS: BP 109/57
[2024-09-10 01:31] VITALS: BP 109/57
--- NOTE | 2024-09-10 01:35 | NUR ---
awake, O2 1LNC in place, cpox at bedside, sats 94%. tele#[address] afib[address] denies CP and no sob noted when turned or up to brp. voided small amounts dark yellow urine. Back to bed, SBA. tolerated well, gets tachy when ambulating but not sob. lungs with fine crackle t/o, eating grapes and gram crackers given on requets. much more talkative, smiling, pleasant, awake. watching tv. no c/o pain or lightheadness at this time
--- NOTE | 2024-09-10 03:31 | NUR ---
AWAKE, WATCHING TV. NO C/O CP OR SOB. TELE#[address] AFIB[address] O2 1LNC CPOX 94%. REPOSITIONS SELF IN BED. ALRMS ON FOR FALL PROTECTION
[2024-09-10 05:28] LABS: BASOPHILS 0.7 % (0-2); EOSINOPHILS 0.1 % (0-6); HEMATOCRIT 33.3 % (35.0-50.0); HEMOGLOBIN 11.2 g/dL (12.0-18.0); LYMPHOCYTES 13.6 % (24-44); MCHC 33.5 g/dl (30-36); MCV 86.6 fl (81-99); MONOCYTES 11.2 % (0-12); NEUTROPHILS 74.4 % (39-80); PLATELET COUNT 397 K/uL (140-440); RBC 3.85 M/ul (4.3-5.7); RDW 17.2 (10.5-15.0)
[2024-09-10 05:33] LABS: ANION GAP 9.9 (7-21); BUN/CREATININE RATIO 23.94 (6.0-28.6); CALCIUM 9.1 mg/dL (8.5-10.1); CREATININE, SERUM 0.71 mg/dL (0.55-1.02); POTASSIUM 3.9 mmol/L (3.5-5.1)
[2024-09-10 06:37] VITALS: BP 112/65
--- NOTE | 2024-09-10 06:49 | NUR ---
daily standing weight 45.9kg
--- NOTE | 2024-09-10 06:51 | NUR ---
Daily standing scale weight 45.7 KG
--- NOTE | 2024-09-10 07:32 | NUR ---
MORNING REPORT RECIEVED FROM KALEIGH PEREZ. RN REPORTED PT DID NOT SLEEP WELL LAST NIGHT AND WAS AWAKE UNTIL 0400. PT LAYING IN BED WITH CHEST RISE EQUAL BILAT. PT HAS CPOX IN PLACE AND CALL LIGHT IN REACH.
--- NOTE | 2024-09-10 08:49 | NUR ---
Patient in bed. Call light within reach. No further needs at this time.
--- NOTE | 2024-09-10 09:00 | NUR ---
Pt out of room. Will return later to check for needs for this pt.
--- NOTE | 2024-09-10 09:23 | NUR ---
THIS RN AND KALEIGH EHRNANDEZ TOOK PT TO IMAGING VIA WHEELCHAIR ON 1L NC. ONCE BACK IN ROOM. PT AMBULATED TO BATHROOM WITH FWW, STEADY ON FEET. PLACED IN RECLINER. CALL LIGHT IN REACH.
[2024-09-10 10:17] VITALS: BP 106/62
--- NOTE | 2024-09-10 10:33 | NUR ---
PATIENT IN CHAIR AT THIS TIME. HOME HEALTH CLINICAL SUPERVISOR CHARTED VITALS AND I&O'S. CALL LIGHT WITH IN REACH. NOTHING ELSE NEEDED AT THIS TIME.
--- NOTE | 2024-09-10 10:40 | NUR ---
In and spoke with Conchis. She is wanting to go home. Discussed did not state this in the 8:30 meeting. Pt denies needs to go home. She cont. on 1 L of 02 per nc and would like to use [facility] if 02 is needed. She is now considering using a walker. She does not want to buy a walker. I gave her the infor for [employer]. She agreed I can call her daughter.
--- NOTE | 2024-09-10 10:45 | NUR ---
NOtified by Dr. Wright he is sending this pt home today. I called her daughter and she states her son will be in to pick her up. UPdated I spoke with Conchis and she will need 02. I have sent a fax to [employer] [facility] and I am waiting to hear when they will be able to deliver.
--- NOTE | 2024-09-10 11:00 | NUR ---
Updated charge nurse. Pt will dc today. Pt will need to go home with a [employer] tank. Grandson will be in to transport Conchis.
--- NOTE | 2024-09-10 11:09 | NUR ---
SPOKE MD ABOUT PT NEEDS FOR OXYGEN. REQUESTED HOME O2 QUALIFIER. VERBAL ORDER PLACED. RT CALLED.
[2024-09-10 11:13] VITALS: BP 106/62
--- NOTE | 2024-09-10 11:46 | NUR ---
DENEEN, RT IN ROOM WITH PT.
--- NOTE | 2024-09-10 11:48 | NUR ---
SPOKE WITH RT AND MD JONES ABOUT PT O2 HOME QUILIFIER, DENEEN RT RECOMMENDED 1L O2 AT REST AND WITH EXCERTION.
--- NOTE | 2024-09-10 11:55 | NUR ---
PT LAYING IN BED. PT AMBULATED FROM RESTROOM TO BED, PT DID NOT USE CALL LIGHT. PT WAS INSTRUCTED THAT SHE NEEDS TO USE CALL LIGHT AND IF SHE DOES NOT HER BED ALARM WILL NEED TO BE TURNED ON. PT IS IN BED WILL CALL LIGHT IN REACH NO CONCERNS AT THIS TIME.
[2024-09-10] MEDS ORDERED: LEVOFLOXACIN750 MG PO (11:58)
[2024-09-10] MEDS ORDERED: PREDNISONE20 MG PO (12:01)
[2024-09-10] MEDS ORDERED: METOPROLOL SUCC25 MG PO (12:03)
--- NOTE | 2024-09-10 13:01 | NUR ---
PT LAYING IN BED, SPOKE WITH PT ABOUT FOLLOWING UP WITH HER PCP AND THAT SHE NEEDS A CT SCAN 3 MONTHS FROM NOW. PT WAS HESISTANT BUT AGREEABLE. PT IS NOW CALLING HER DAUGHTER TO SCHEDULE A RIDE ONCE DISCHARGED. PT HAS NO OTHER NEEDS AT THIS TIME.
[2024-09-10 13:52] VITALS: BP 115/68
--- NOTE | 2024-09-10 13:58 | NUR ---
PATIENT IN BED AT THIS TIME. LABORATORY TECH CHARTED VITALS AND I&O'S. CALL LIGHT WITHIN REACH. NOTHING ELSE NEEDED AT THIS TIME.
--- NOTE | 2024-09-10 14:10 | NUR ---
Spoke with Enrique from [employer]. Their cement mixer driver will deliver 02 later this afternoon. Updated pt will dc with one of their tanks. Pt should have 10 hrs of 02 on this tank.
== END 2024-09-10 14:30 | disposition home or self-care (01) | DRG 193 ==
LOC: ED 15:21 → MS 19:35
PROVIDERS: Internal Medicine; Student in an Organized Health Care Education/Training Program; ADMIT Student in an Organized Health Care Education/Training Program; ATTEND Student in an Organized Health Care Education/Training Program
DX: J18.9 Pneumonia, unspecified organism (principal); I50.33 Acute on chronic diastolic (congestive) heart failure; J96.01 Acute respiratory failure with hypoxia; J44.0 Chronic obstructive pulmonary disease with (acute) lower respiratory infection; I48.20 Chronic atrial fibrillation, unspecified; I20.0 Unstable angina; J43.9 Emphysema, unspecified; F32.9 Major depressive disorder, single episode, unspecified; K21.9 Gastro-esophageal reflux disease without esophagitis; Z87.891 Personal history of nicotine dependence; E83.42 Hypomagnesemia; N20.0 Calculus of kidney; Z88.5 Allergy status to narcotic agent; E78.5 Hyperlipidemia, unspecified; Z79.01 Long term (current) use of anticoagulants; Z90.710 Acquired absence of both cervix and uterus; Z98.890 Other specified postprocedural states; Z79.899 Other long term (current) drug therapy; Z79.82 Long term (current) use of aspirin; Z91.148 Patient's other noncompliance with medication regimen for other reason
CPT/HCPCS: 36415; 51798; 71045; 71046; 71260; 80048; 80053; 83605; 83735; 83880; 84100; 84439; 84443; 84484; 85025; 85379; 87040; 93005; 93010; 93306; 94640; 94667; 94760; 94761; 94762; 97110; 97116; 97162; 97166; 97530; 97535; A9270; J0696; J1171; J1940; J2405; J3475; J3480; J3490; J7060; J7121; J7512; P9047; Q9967

== ENCOUNTER 2024-09-28 09:57 | Emergency (ER) | payer MEDICARE ==
[~2024-09-28] VITALS: Ht 165.1 cm; Wt 45.8 kg
[~2024-09-28 09:57] MED LIST changes: +LEVOFLOXACIN750 MG PO; +VITAMIN C500 M1 PO; +VITAMIN D31250 MC2 PO
[2024-09-28 10:40] LABS: BASOPHILS 0.6 % (0-2); HEMOGLOBIN 12.7 g/dL (12.0-18.0); LYMPHOCYTES 41.9 % (24-44); MCH 28.8 (27-36); MCHC 32.5 g/dl (30-36); MCV 88.6 fl (81-99); MONOCYTES 15.4 % (0-12); NEUTROPHILS 42.1 % (39-80); PLATELET COUNT 165 K/uL (140-440); RBC 4.41 M/ul (4.3-5.7); RDW 18.9 (10.5-15.0)
[2024-09-28] MEDS ORDERED: ALBUTEROL/IPRATROPIUM 3 ML NEB INH ONE (10:45)
[2024-09-28 10:49] LABS: ALBUMIN/GLOBULIN RATIO 0.81 (1.1-2.4); ANION GAP 15.5 (7-21); BILIRUBIN, TOTAL 0.8 mg/dL (0.2-1.0); BUN/CREATININE RATIO 23.52 (6.0-28.6); CALCIUM 8.5 mg/dL (8.5-10.1); CREATININE, SERUM 1.02 mg/dL (0.55-1.02); MAGNESIUM 1.6 mg/dL (1.8-2.4); POTASSIUM 3.5 mmol/L (3.5-5.1); PROTEIN, TOTAL 6.7 g/dL (6.4-8.2)
[2024-09-28 10:55] LABS: CORONAVIRUS COVID-19 AG NEGATIVE (NEGATIVE); INFLUENZA A AG POSITIVE (NEGATIVE); INFLUENZA B AG NEGATIVE (NEGATIVE)
[2024-09-28] MEDS ORDERED: SODIUM CHLORIDE 0.9% 500 ML IV PRN (11:00)
[2024-09-28] MEDS ORDERED: ACETAMINOPHEN 325 MG TAB PO ONE (12:45)
--- NOTE | 2024-09-28 12:57 | EKG ---
[facility] [address] [facility] [address] [facility] [place] [address] Signed Atrial fibrillation with rapid ventricular response Right axis deviation Possible Right ventricular hypertrophy ST \T\ T wave abnormality, consider inferior ischemia Abnormal ECG When compared with ECG of 07-SEP-2024 10:50, Inverted T waves have replaced nonspecific T wave abnormality in Inferior leads T wave inversion now evident in Anterior leads Confirmed by Trip Wright MD ([id number]) on 09/28/2024 12:57:28 PM Electronically Signed By: TRIP WRIGHT MD 09/28/24 1257 PATIENT NAME: ASHLIE PINEDA ANN Electrocardiogram DATE OF : 45 PHYSICIAN: TRIP WRIGHT MD REPORT #: [id number] REPORT IS CONFIDENTIAL AND NOT TO BE RELEASED WITHOUT AUTHORIZATION
[2024-09-28 15:00] VITALS: BP 111/73
== END 2024-09-28 15:00 | disposition home or self-care (01) ==
LOC: ED 09:57
PROVIDERS: Emergency Medicine
DX: J11.1 Influenza due to unidentified influenza virus with other respiratory manifestations (principal); I48.91 Unspecified atrial fibrillation; Z87.891 Personal history of nicotine dependence; Z88.5 Allergy status to narcotic agent; Z79.01 Long term (current) use of anticoagulants; Z79.899 Other long term (current) drug therapy
CPT/HCPCS: 36415; 71045; 80053; 83735; 83880; 84484; 85025; 93005; 93010; 94640; 99285-25; A9270; J7040

== ENCOUNTER 2025-01-20 09:59 | Emergency (ER) | payer MEDICARE ==
[~2025-01-20] VITALS: Ht 165.1 cm; Wt 46.2 kg
[2025-01-20 10:16] LABS: BASOPHILS 0.4 % (0.1-1.2); EOSINOPHILS 0.2 % (0.7-5.8); HEMOGLOBIN 13.8 g/dL (11.2-15.7); LYMPHOCYTES 16.1 % (19.3-51.7); MCH 29.9 PG (25.6-32.2); MCHC 32.1 g/dL (32.2-35.5); MCV 93.1 fL (79.4-94.8); NEUTROPHILS 75.1 % (34.0-71.1); PLATELET COUNT 240 K/uL (182-369); RBC 4.62 M/uL (3.93-5.22)
[2025-01-20 10:54] LABS: ALBUMIN 3.2 g/dL (3.4-5.0); ALBUMIN/GLOBULIN RATIO 0.84 (1.1-2.4); ANION GAP 13.3 (7-21); BUN/CREATININE RATIO 18.91 (6.0-28.6); CALCIUM 8.8 mg/dL (8.5-10.1); CREATININE, SERUM 1.11 mg/dL (0.55-1.02); POTASSIUM 4.3 mmol/L (3.5-5.1)
[2025-01-20] MEDS ORDERED: DEXAMETHASONE SOD PHOS 10 MG/ML VIAL IV ONE (13:15)
[2025-01-20 13:54] VITALS: BP 108/78
--- NOTE | 2025-01-21 13:03 | EKG ---
[facility] [place] [facility] [address] [facility] [place], [place] [address] Signed Atrial fibrillation with rapid ventricular response Possible Right ventricular hypertrophy T wave abnormality, consider inferior ischemia Abnormal ECG When compared with ECG of 28-SEP-2024 10:36, Nonspecific T wave abnormality has replaced inverted T waves in Anterior leads Confirmed by Romel Benjamin DO ([id number]) on 01/21/2025 1:03:30 PM Electronically Signed By: ROMEL BENJAMIN DO 01/21/25 1303 PATIENT NAME: ASHLIE PINEDA ANN Electrocardiogram DATE OF : 45 PHYSICIAN: ROMEL BENJAMIN DO REPORT #: [id number] REPORT IS CONFIDENTIAL AND NOT TO BE RELEASED WITHOUT AUTHORIZATION
== END 2025-01-20 13:54 | disposition home or self-care (01) ==
LOC: ED 09:59
PROVIDERS: Emergency Medicine
DX: M54.6 Pain in thoracic spine (principal); Z79.899 Other long term (current) drug therapy; Z88.5 Allergy status to narcotic agent; Z87.891 Personal history of nicotine dependence
CPT/HCPCS: 36415; 71045; 72070; 80053; 84484; 85025; 85379; 96374; 99284-25; J1100